=== PATIENT | female | born 1950 | race Caucasian/White ===

== ENCOUNTER 2020-06-24 13:19 | Outpatient (CLI) | payer OTHER, SELFPAY ==
[2020-06-24 13:39] LABS: Basophils Absolute Auto 0.1 K/mm3 (0.0-0.1); Basophils Percent Auto 0.9 % (0.2-1.2); Eosinophils Absolute Auto 0.1 K/mm3 (0-0.3); Eosinophils Percent Auto 1.4 % (0-4.4); Hematocrit 39.7 % (37.0-47.0); Hemoglobin 12.9 g/dL (12.0-15.0); Immature Granulocyte Absolute 0.02 K/mm3 (0.00-0.031); Immature Granulocyte Percent A 0.3 % (0-0.5); Lymphocytes Absolute Auto 2.24 K/mm3 (0.9-3.2); Lymphocytes Percent Auto 38.7 % (18.3-44.2); Mean Corpuscular HGB Conc 32.5 g/dl (32-36); Mean Corpuscular Hemoglobin 32.2 pg (26-34); Mean Platelet Volume 9.5 fl (7.4-10.4); Monocytes Absolute Auto 0.7 K/mm3 (0.1-0.6); Monocytes Percent Auto 11.4 % (2.6-8.5); Neutrophils Absolute Auto 2.7 K/mm3 (1.3-6.7); Neutrophils Percent Auto 47.3 % (45.5-73.1); Platelet Count Result 285 k/mm3 (150-375); Red Blood Count 4.01 M/mm3 (4.2-5.4); Red Cell Distribution Width 13.5 % (11.5-14.5); White Blood Count 5.8 K/mm3 (4.5-10.0)
[2020-06-24 13:51] LABS: Alanine Aminotransferase 20 U/L (4-35); Albumin Level 3.9 g/dL (3.5-5.1); Alkaline Phosphatase 61 U/L (38-126); Anion Gap 6 mmol/L (8-16); Aspartate Amino Transferase 30 U/L (14-36); Bilirubin,Total 0.5 mg/dL (0.2-1.3); Blood Urea Nitrogen 24 mg/dL (7-17); Calcium 8.6 mg/dL (8.4-10.2); Carbon Dioxide 29 mmol/L (22-30); Chloride 102 mmol/L (98-107); Cholesterol 154 mg/dL (0-200); Estimated Glomerular Filt Rate 55; Glucose 119 mg/dL (65-105); HDL Direct 49 mg/dL; Potassium 3.7 mmol/L (3.4-5.0); Sodium 137 mmol/L (137-145); Triglycerides 119 mg/dL (<150); Uric Acid 4.8 mg/dL (2.5-7.5)
[2020-06-24 14:02] LABS: LDL Cholesterol Direct 73 mg/dL
[2020-06-24 14:21] LABS: Thyroid Stimulating Hormone 0.102 uIU/mL (0.465-4.680)
[2020-06-24 14:25] LABS: Free T4 Free Thyroxine 1.31 ng/mL (0.78-2.19)
[2020-06-24 14:57] LABS: Folic Acid > 20.0 ng/mL (2.76->20); Vitamin B12 > 1000.0 pg/mL (239-931)
== END 2020-06-24 13:20 | disposition home or self-care (01) ==
PROVIDERS: PCP Internal Medicine; Visit Provider Internal Medicine
DX: R53.83 Other fatigue (principal); I10 Essential (primary) hypertension; E03.9 Hypothyroidism, unspecified; E78.5 Hyperlipidemia, unspecified; M10.9 Gout, unspecified
CPT/HCPCS: 36415; 80053; 80061; 82607; 82746; 84439; 84443; 84550; 85025

== ENCOUNTER 2020-07-05 01:39 | Outpatient (CLI) | payer OTHER, SELFPAY ==
[2020-07-05 19:20] LABS: SARS-CoV-2 RNA PCR Negative
== END 2020-07-05 01:40 | disposition home or self-care (01) ==
LOC: ANHCOVIDDT 01:39
PROVIDERS: PCP Internal Medicine; Visit Provider Internal Medicine Gastroenterology
DX: Z01.812 Encounter for preprocedural laboratory examination (principal); Z20.828 Contact with and (suspected) exposure to other viral communicable diseases
CPT/HCPCS: 87635; C9803; U0003

== ENCOUNTER 2020-07-07 01:26 | Day surgery (SDC) | payer OTHER, SELFPAY ==
[2020-06-29 10:32] VITALS: BMI 39.2
[2020-07-07 09:57] VITALS: BP 143/74; PULSE 73; RESP 16; TEMP 36.6; O2SAT 73; BMI 40.9
--- NOTE | 2020-07-07 10:02 | WPDGICN ---
Assessment and Plan Assessment and plan (1) Encounter for screening colonoscopy: Code(s): Z12.11 - Encounter for screening for malignant neoplasm of colon Status: Acute Assessment and Plan: Patient presents for screening colonoscopy today. Last colonoscopy was 10 or 11 years prior to this. Further recommendations will be given after endoscopy. (2) History of gastric bypass: Code(s): Z98.84 - Bariatric surgery status Status: Acute (3) GERD (gastroesophageal reflux disease): Code(s): K21.9 - Gastro-esophageal reflux disease without esophagitis Status: Acute GI Consult Note Consult date/time: 07/07/20 10:02 HPI: Angelita Byrd is a 70 year old female Presents for screening colonoscopy. Patient followed by Dr. Jorden Overton. Patient states that her current weight appetite bowel movements are normal. She denies abdominal pain. She has had no blood in her stools. Her past medical history is significant for gastric bypass surgery. She occasionally has acid reflux and epigastric discomfort. She gets full quickly. Review of Systems Review of Systems: All systems reviewed & are unremarkable except as noted in HPI and below PMFSH Family History Family History Sibling Patient's sister is in good health Patient's brother is in good health Social History Social History Smoking status: Never smoker Second hand tobacco smoke exposure: No Alcohol intake: current Substance use: unknown Spiritual care concerns: No Meds Home Medications and Allergies Home Medications Medication Instructions Recorded Confirmed Type codeine-guaifenesin 10 ml PO Q4-6H PRN #120 ml 10/30/19 06/29/20 Rx levofloxacin [Levaquin] 750 mg PO DAILY 5 Days #5 tablet 10/30/19 06/29/20 Rx montelukast [Singulair] 10 mg PO DAILY 10/30/19 06/29/20 History prednisone 40 mg PO DAILY 5 Days #10 tablet 10/30/19 06/29/20 Rx hydrochlorothiazide 12.5 mg tablet 12.5 mg PO DAILY #90 tablet 12/01/19 06/29/20 Rx citalopram 20 mg tablet 20 mg PO DAILY #90 tablet 12/03/19 06/29/20 Rx simvastatin 20 mg tablet 20 mg PO HS #90 tablet 12/03/19 06/29/20 Rx allopurinol 100 mg tablet 100 mg PO DAILY #90 tablet 03/11/20 06/29/20 Rx amlodipine 10 mg tablet 10 mg PO DAILY #90 tablet 03/11/20 06/29/20 Rx bupropion HCl 150 mg tablet,12 hr 150 mg PO BID #180 tablet 03/11/20 06/29/20 Rx sustained-release pantoprazole 40 mg tablet,delayed 40 mg PO QAM #90 tablet 03/11/20 06/29/20 Rx release Adults Multivitamin 1 tablet PO DAILY 06/29/20 06/29/20 History Iron DAILY 06/29/20 History calcium carbonate [Calcium 600] 600 mg PO DAILY 06/29/20 06/29/20 History fluticasone propionate [Flonase 50 mcg INTRANASAL DAILY 06/29/20 06/29/20 History Allergy Relief] turmeric 400 mg PO DAILY 06/29/20 06/29/20 History vitamin B complex [B tablet 06/29/20 History Complex-Vitamin B12] levothyroxine 112 mcg tablet 112 mcg PO DAILY #90 tablet 07/04/20 Rx Allergies Allergy/AdvReac Type Severity Reaction Status Date / Time No Known Allergies Allergy Verified 07/07/20 09:55 Vital Signs Vital Signs - 24 hr 07/07/20 09:57 Temperature 98 F Pulse Rate 73 Respiratory Rate 16 Blood Pressure 143/74 H Pulse Oximetry 73 L Exam Narrative: Exam Narrative: Physical exam reveals patient to be alert. Vital signs stable. HEENT exam unremarkable. She is anicteric. Lungs are clear to auscultation and percussion. Heart is without murmur or extra sounds. Abdominal exam bowel sounds are present soft nontender with no organomegaly. Digital external rectal exam normal.
--- NOTE | 2020-07-07 10:11 | WPDANESEPPF ---
Anes - Initial Pre Proc Eval Procedure: Operation Date: 07/07/20 10:30 Proposed Procedures p Screening Colonoscopy - Red Lan MD Date/Time: 07/07/20 10:11 Surgeon: Red Lan MD Pre Op Diagnosis: Neoplasm Screening Patient Data Age: 70 Gender: F Height: 1.7 m Weight: 118.6 kg Last Vital Signs Temp 36.6 C 07/07/20 09:57 Pulse 73 07/07/20 09:57 Resp 16 07/07/20 09:57 BP 143/74 H 07/07/20 09:57 Pulse Ox 73 L 07/07/20 09:57 Allergies Allergy/AdvReac Type Severity Reaction Status Date / Time No Known Allergies Allergy Verified 07/07/20 09:55 Home Medications Medication Instructions Recorded Confirmed Type codeine-guaifenesin 10 ml PO Q4-6H PRN #120 ml 10/30/19 06/29/20 Rx levofloxacin [Levaquin] 750 mg PO DAILY 5 Days #5 tablet 10/30/19 06/29/20 Rx montelukast [Singulair] 10 mg PO DAILY 10/30/19 06/29/20 History prednisone 40 mg PO DAILY 5 Days #10 tablet 10/30/19 06/29/20 Rx hydrochlorothiazide 12.5 mg tablet 12.5 mg PO DAILY #90 tablet 12/01/19 06/29/20 Rx citalopram 20 mg tablet 20 mg PO DAILY #90 tablet 12/03/19 06/29/20 Rx simvastatin 20 mg tablet 20 mg PO HS #90 tablet 12/03/19 06/29/20 Rx allopurinol 100 mg tablet 100 mg PO DAILY #90 tablet 03/11/20 06/29/20 Rx amlodipine 10 mg tablet 10 mg PO DAILY #90 tablet 03/11/20 06/29/20 Rx bupropion HCl 150 mg tablet,12 hr 150 mg PO BID #180 tablet 03/11/20 06/29/20 Rx sustained-release pantoprazole 40 mg tablet,delayed 40 mg PO QAM #90 tablet 03/11/20 06/29/20 Rx release Adults Multivitamin 1 tablet PO DAILY 06/29/20 06/29/20 History Iron DAILY 06/29/20 History calcium carbonate [Calcium 600] 600 mg PO DAILY 06/29/20 06/29/20 History fluticasone propionate [Flonase 50 mcg INTRANASAL DAILY 06/29/20 06/29/20 History Allergy Relief] turmeric 400 mg PO DAILY 06/29/20 06/29/20 History vitamin B complex [B tablet 06/29/20 History Complex-Vitamin B12] levothyroxine 112 mcg tablet 112 mcg PO DAILY #90 tablet 07/04/20 Rx Patient hx anesthesia problems: none Family hx anesthesia problems: none PMFSH Past Medical History Medical History (Updated 07/07/20 @ 10:18 by Rafy Glass MD) Depression GERD (gastroesophageal reflux disease) Gout Hypercholesterolemia Hypertension Hypothyroid Family History Family History Sibling Patient's sister is in good health Patient's brother is in good health Social History Social History Smoking status: Never smoker Second hand tobacco smoke exposure: No Alcohol intake: current Substance use: unknown Spiritual care concerns: No Anes - Eval Final PreProcedure Day of Procedure 07/07/20 10:11 Patient weight: obese Heart: regular rate and rhythm Lungs: clear to auscultation and normal air movement Airway: Mallampati scale class II Neurological: alert and oriented Last oral intake: >/= 8 hours ASA classification: III Emergent: no Anesthetic plan: proceed Anesthesia type and monitoring: general GIVS Informed Consent: The patient's anesthetic plan and its attendant risks and benefits were discussed with the patient/family/POA. Questions were solicited and answers provided to the satisfaction of the patient/family/POA.
[2020-07-07] MEDS: LACTATED RINGERS 1,000 ML 150 ML IV CONT (10:26)
[2020-07-07 11:01] VITALS: BP 124/74; PULSE 68; RESP 13; O2SAT 97
[2020-07-07 11:13] VITALS: BP 137/81; PULSE 65; RESP 22; O2SAT 97
[2020-07-07 11:23] VITALS: BP 146/76; PULSE 65; RESP 22; O2SAT 100
== END 2020-07-07 11:52 | disposition home or self-care (01) ==
PROVIDERS: PCP Internal Medicine; Visit Provider Internal Medicine Gastroenterology
PROC: 0DJD8ZZ Inspection of Lower Intestinal Tract, Via Natural or Artificial Opening Endoscopic (ICD-10-PCS; CPT 45378; principal; 2020-07-07 10:30)
DX: Z12.11 Encounter for screening for malignant neoplasm of colon (principal); K64.8 Other hemorrhoids; K21.9 Gastro-esophageal reflux disease without esophagitis; Z98.84 Bariatric surgery status; I10 Essential (primary) hypertension; E78.00 Pure hypercholesterolemia, unspecified; E03.9 Hypothyroidism, unspecified; M10.9 Gout, unspecified; F32.9 Major depressive disorder, single episode, unspecified; E66.01 Morbid (severe) obesity due to excess calories; Z68.41 Body mass index [BMI] 40.0-44.9, adult
CPT/HCPCS: G0121; J2704; J7120

== ENCOUNTER 2020-07-18 14:47 | Outpatient (CLI) | payer OTHER, SELFPAY ==
--- NOTE | ~2020-07-18 | MM_ITS ---
EXAMINATION: MM screening doc BI w uriel HISTORY: Screening mammogram TECHNIQUE: Craniocaudal and mediolateral oblique 3-D tomosynthesis images were obtained and synthetic 2-D images were generated. CAD analysis was submitted and interpreted. COMPARISON: 06/01/2019, 04/23/2018 bilateral digital screening mammogram examinations BREAST PARENCHYMAL COMPOSITION: The breasts are almost entirely fatty. FINDINGS: There is no evidence of suspicious mass, calcification, or architectural distortion to sugg est malignancy in either breast. There has been no suspicious interval change. IMPRESSION: 1. No mammographic evidence of malignancy. 2. Recommend routine screening mammography in one year. BI-RADS Category 1: Negative Reviewed, dictated and finalized at location A.
== END 2020-07-18 14:48 | disposition home or self-care (01) ==
LOC: ANHIMG 14:48
PROVIDERS: PCP Internal Medicine; Visit Provider Internal Medicine
DX: Z12.31 Encounter for screening mammogram for malignant neoplasm of breast (principal)
CPT/HCPCS: 77063; 77067

== ENCOUNTER 2020-08-03 08:24 | Outpatient (CLI) | payer OTHER, SELFPAY ==
--- NOTE | 2020-08-23 22:53 | WPDHOMESLEEP ---
Sleep Study - Home Date of Study: 08/03/20 Ordering Provider: Da Overton DO Interpreting Physician: Acacia Dasilva MD Home Sleep Study Type: Apnea Link Air Height: 1.68 m Weight: 117.934 kg Body Mass Index: 41.9 [place]: 13 Reason for Sleep Study Snoring, fatigue no matter how much sleep she gets. 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 Occasionally it is loud enough that others complain about it. She occasionally awakens at night with belching heartburn or coughing. She occasionally has trouble sleeping if she has a cold. She does not gasp for breath at night. She rarely has breathing problems at night reported to her by others. She frequently sweats excessively at night but never notices her heart pounding or beating irregularly at night. She occasionally falls asleep during the day really involuntarily and rarely while driving. She does not fall asleep during physical effort. She does not have loss of muscle tone was straw motion. She rarely has daytime difficulties due to excessive sleepiness. She never feels paralyzed on waking or falling asleep. She rarely has vivid dreamlike scenes upon awakening or falling asleep. She has never freight to go to sleep. She rarely has nightmares and rarely remembers her dreams. She frequently has racing thoughts, frequently feels sad as well as depressed an anxious, frequently has muscular tension. she occasionally notices parts of her body jerking. She rarely kicks at night. She frequently has crawling and aching feelings in her legs and occasionally has leg pain at night. She does not have morning jaw pain. She frequently grinds her teeth during sleep. she frequently is bothered by pain during the day occasionally is awakened by pain at night. She frequently wakes up feeling stiff in the morning with sore achy muscles and pain in her neck and spine. She has fatigue memory problems concentration difficulties depression and bowel disturbances. To Her work Schedule. It takes her 1/2 hour to fall asleep and she typically wakes 2 or 3 times at night to urinate for about a half an hour. 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 Smoking status: Never smoker Second hand tobacco smoke exposure: No Alcohol intake: current Drinks per week: 1 Substance use: unknown Spiritual care concerns: No Medications Home Medications Medication Instructions Recorded Confirmed Type codeine-guaifenesin 10 ml PO Q4-6H PRN #120 ml 10/30/19 06/29/20 Rx levofloxacin [Levaquin] 750 mg PO DAILY 5 Days #5 tablet 10/30/19 06/29/20 Rx montelukast [Singulair] 10 mg PO DAILY 10/30/19 06/29/20 History prednisone 40 mg PO DAILY 5 Days #10 tablet 10/30/19 06/29/20 Rx allopurinol 100 mg tablet 100 mg PO DAILY #90 tablet 03/11/20 06/29/20 Rx amlodipine 10 mg tablet 10 mg PO DAILY #90 tablet 03/11/20 06/29/20 Rx bupropion HCl 150 mg tablet,12 hr 150 mg PO BID #180 tablet 03/11/20 06/29/20 Rx sustained-release pantoprazole 40 mg tablet,delayed 40 mg PO QAM #90 tablet 03/11/20 06/29/20 Rx release Adults Multivitamin 1 tablet PO DAILY 06/29/20 06/29/20 History Iron DAILY 06/29/20 History calcium carbonate [Calcium 600] 600 mg PO DAILY 06/29/20 06/29/20 History fluticasone propionate [Flonase 50 mcg INTRANASAL DAILY 06/29/20 06/29/20 History Allergy Relief] turmeric 400 mg PO DAILY 06/29/20
[2020-08-23 23:12] VITALS: BMI 41.9
== END 2020-08-03 08:25 | disposition home or self-care (01) ==
LOC: ANHCSM 08:27
PROVIDERS: PCP Internal Medicine; Visit Provider Internal Medicine
DX: G47.33 Obstructive sleep apnea (adult) (pediatric) (principal)
CPT/HCPCS: 95806

== ENCOUNTER 2020-09-18 00:32 | Outpatient (CLI) | payer OTHER, SELFPAY ==
[2020-09-18 16:41] LABS: SARS-CoV-2 RNA PCR Negative
== END 2020-09-18 00:33 | disposition home or self-care (01) ==
LOC: ANHCOVIDDT 00:33
PROVIDERS: PCP Internal Medicine; Visit Provider Internal Medicine Critical Care Medicine
DX: Z20.828 Contact with and (suspected) exposure to other viral communicable diseases (principal)
CPT/HCPCS: 87635; C9803; U0003

== ENCOUNTER 2020-09-20 08:47 | Outpatient (CLI) | payer OTHER, SELFPAY ==
--- NOTE | 2020-11-01 10:31 | WPDSLEEPSTUD ---
Sleep Study Date of Study: 09/20/20 Ordering Provider: Da Overton DO Interpreting Physician: Acacia Dasilva MD Sleep Study Type: CPAP Titration Height: 1.65 m Weight: 110.223 kg Body Mass Index: 40.4 [place]: 13 Reason for Sleep Study Home sleep test on August 03, 2020 with mild obstructive sleep apnea syndrome with an AHI of 14.2, desaturation 81% mainly obstructive events with 65% of her apneas scored as obstructive, a third of the events were central apneas, and 5 minutes spent below 88% saturation with moderate snoring. Sleep History Angelita Byrd is a 70 yo female with a history of snoring on occasion, reported to her by her . Occasionally it is loud enough that others complain about it. She occasionally awakens at night with belching heartburn or coughing. She occasionally has trouble sleeping if she has a cold. She does not gasp for breath at night. She rarely has breathing problems at night reported to her by others. She frequently sweats excessively at night but never notices her heart pounding or beating irregularly at night. She occasionally falls asleep during the day really involuntarily and rarely while driving. She does not fall asleep during physical effort. She does not have loss of muscle tone was straw motion. She rarely has daytime difficulties due to excessive sleepiness. She never feels paralyzed on waking or falling asleep. She rarely has vivid dreamlike scenes upon awakening or falling asleep. She has never freight to go to sleep. She rarely has nightmares and rarely remembers her dreams. She frequently has racing thoughts, frequently feels sad as well as depressed an anxious, frequently has muscular tension. she occasionally notices parts of her body jerking. She rarely kicks at night. She frequently has crawling and aching feelings in her legs and occasionally has leg pain at night. She does not have morning jaw pain. She frequently grinds her teeth during sleep. she frequently is bothered by pain during the day occasionally is awakened by pain at night. She frequently wakes up feeling stiff in the morning with sore achy muscles and pain in her neck and spine. She has fatigue, memory problems, concentration difficulties, depression, and bowel disturbances. It takes her 1/2 hour to fall asleep and she typically wakes 2 or 3 times at night, usually to urinate. SHe remains awake for about a half an hour. 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 Smoking status: Never smoker Second hand tobacco smoke exposure: No Alcohol intake: current Drinks per week: 1 Substance use: unknown Spiritual care concerns: No Medications Home Medications Medication Instructions Recorded Confirmed Type codeine-guaifenesin 10 ml PO Q4-6H PRN #120 ml 10/30/19 06/29/20 Rx levofloxacin [Levaquin] 750 mg PO DAILY 5 Days #5 tablet 10/30/19 06/29/20 Rx montelukast [Singulair] 10 mg PO DAILY 10/30/19 06/29/20 History prednisone 40 mg PO DAILY 5 Days #10 tablet 10/30/19 06/29/20 Rx Adults Multivitamin 1 tablet PO DAILY 06/29/20 06/29/20 History Iron DAILY 06/29/20 History calcium carbonate [Calcium 600] 600 mg PO DAILY 06/29/20 06/29/20 History fluticasone propionate [Flonase 50 mcg INTRANASAL DAILY 06/29/20 06/29/20 History Allergy Relief] turmeric 400 mg PO DAILY 06/29/20 06/29/20 History vitamin B complex [B tablet 06/29/20 History
[2020-11-01 12:18] VITALS: BMI 40.4
== END 2020-09-20 08:48 | disposition home or self-care (01) ==
LOC: ANHCSM 08:48
PROVIDERS: PCP Internal Medicine; Visit Provider Internal Medicine
DX: G47.33 Obstructive sleep apnea (adult) (pediatric) (principal); Z68.41 Body mass index [BMI] 40.0-44.9, adult
CPT/HCPCS: 95811

== ENCOUNTER 2020-12-13 05:02 | Emergency (ER) | payer OTHER, SELFPAY ==
--- NOTE | ~2020-12-13 | XR_ITS ---
EXAMINATION: XR knee LT 3V DATE: 12/13/2020 05:43 INDICATION: Left knee pain TECHNIQUE: Three views of the left knee were obtained. COMPARISON: None. FINDINGS: Alignment is normal. No fracture or osteochondral lesion. There is mild tricompartmental os teoarthritis characterized by tiny marginal osteophytes. No joint effusion/synovitis. Calcified athe rosclerosis is noted. IMPRESSION: 1. No acute osseous abnormality. Reviewed, dictated and finalized at location A. [employer]
--- NOTE | ~2020-12-13 | XR_ITS ---
EXAMINATION: XR foot LT min 3V DATE: 12/13/2020 05:43 INDICATION: Left foot pain TECHNIQUE: Dorsoplantar, lateral, and 2 oblique views of the left foot were obtained. COMPARISON: None. FINDINGS: There is no fracture, dislocation, or subluxation. Moderate osteoarthritis is noted at the first metatarsophalangeal joint and in multiple interphalangeal joints. A plantar calcaneal enthesoph ytes present. The soft tissues are unremarkable. IMPRESSION: 1. No acute osseous abnormality. Reviewed, dictated and finalized at location A. . CREATIVE DIRECTOR
--- NOTE | 2020-12-13 05:06 | ED.FALL ---
HPI - Fall General Chief Complaint: Fall Stated Complaint: other Time Seen by Provider: 12/13/20 05:03 History of Present Illness HPI Narrative: She was working upstairs on the floors when she slipped and fell. She primarily has pain in her left foot and knee. She also reports pain in the hips, and entire back, neck, and head. She did not strike her head in the fall. She was was able to get herself up after the fall and ambulate without difficulty. Related Data Home Medications Medication Instructions Recorded Confirmed montelukast [Singulair] 10 mg PO DAILY 10/30/19 06/29/20 Adults Multivitamin 1 tablet PO DAILY 06/29/20 06/29/20 Iron DAILY 06/29/20 calcium carbonate [Calcium 600] 600 mg PO DAILY 06/29/20 06/29/20 fluticasone propionate [Flonase 50 mcg INTRANASAL DAILY 06/29/20 06/29/20 Allergy Relief] turmeric 400 mg PO DAILY 06/29/20 06/29/20 vitamin B complex [B tablet 06/29/20 Complex-Vitamin B12] Allergies Allergy/AdvReac Type Severity Reaction Status Date / Time No Known Allergies Allergy Verified 12/13/20 05:35 Review of Systems Review of Systems: All systems reviewed & are unremarkable except as noted in HPI and below Constitutional: Constitutional: Denies fever(s) and Denies weakness Eyes: Eyes: Reports no additional eye complaints Cardiovascular: Cardiovascular: Denies chest pain Respiratory: Respiratory: Denies dyspnea Gastrointestinal: Gastrointestinal: Denies nausea Genitourinary: Genitourinary: Reports no additional female genitourinary complaints Musculoskeletal: Musculoskeletal: Reports back pain Neurologic: Denies confusion, Denies dizziness, Reports headache(s) and Denies weakness Hematologic/Lymphatic: Hematologic/Lymphatic: Denies easy bleeding and Denies easy bruising PMF Past Medical History Medical History Depression GERD (gastroesophageal reflux disease) Gout History of sinus problem Hypercholesterolemia Hypertension Hypothyroid Kidney stones Obstructive sleep apnea (~07/2020) Family History Family History Sibling Patient's sister is in good health Patient's brother is in good health Social History Social History Social History: , 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 Smoking status: Never smoker Second hand tobacco smoke exposure: No Alcohol intake: current Drinks per week: 1 Substance use: unknown Spiritual care concerns: No Exam Const: General: no acute distress and alert Nutritional Appearance: obese Orientation/consciousness: patient oriented x3 HENMT: Head: normal to inspection, no contusions, no hematomas and no lacerations Eyes: Pupils: pupils not ERRL EOM: EOM not intact bilaterally Neck: Neck: not normal to visual inspection Resp: Effort & Inspection: normal respiratory effort Cardio: Rate: regular rate GI: GI Palp: Yes Soft to palpation and No Tenderness to palpation present (GI) Back/Spine/Pelvis: Other: Reporting diffuse pain and tenderness throughout the back. She does not seem to have any significant focal tenderness Skin: Other: No wounds, bruising, or obvious signs of injury Neuro: General: patient oriented x3, moves all extremities, no focal motor deficits and CN's II-XI intact bilaterally Speech: normal speech Gait exam (Neuro): Normal gait present Extrem: Other: Tenderness over superior portion or left patella and mid foot. Full ROM. Course Vital Signs Vital signs: Vital Signs Temperature 36.8 C 12/13/20 05:15 Pulse Rate 81 12/13/20 05:15 Respiratory Rate 12/13/20 05:15 Blood Pressure 182/88 H 12/13/20 05:15 Pulse Oximetry 99 12/13/20 05:15 Temperature 36.8 C 12/13/20 05:15 Pulse Rate 81 12/13/20 05:15 Respiratory Rate 20 12/13/20 05:15 Blood Pressure 182/88 H
[2020-12-13 05:15] VITALS: BP 182/88; PULSE 81; RESP 20; TEMP 36.8; O2SAT 99
--- NOTE | 2020-12-13 06:30 | PC.NURSE ---
Pt. requesting work note upon discharge. ERP notified of Pt. request. ERP notified RN Pt. is cleared to return to work tonight. Pt. states Wow. Doesn't he know what I do? I work on [employer]. He is an ass.
== END 2020-12-13 06:30 | disposition home or self-care (01) ==
PROVIDERS: Emergency Provider Emergency Medicine; PCP Internal Medicine
DX: S93.602A Unspecified sprain of left foot, initial encounter (principal); M25.562 Pain in left knee; K21.9 Gastro-esophageal reflux disease without esophagitis; M10.9 Gout, unspecified; E78.00 Pure hypercholesterolemia, unspecified; I10 Essential (primary) hypertension; E03.9 Hypothyroidism, unspecified; Z87.442 Personal history of urinary calculi; G47.33 Obstructive sleep apnea (adult) (pediatric); W01.0XXA Fall on same level from slipping, tripping and stumbling without subsequent striking against object, initial encounter
CPT/HCPCS: 73562; 73630; 99284

== ENCOUNTER 2021-05-03 09:00 | Outpatient (RCR) | payer OTHER, SELFPAY ==
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
--- NOTE | 2021-04-06 08:57 | PCPTNOTE ---
Patient did not show up for scheduled appointment this date. Left voicemail about missed appointment and reminded Pt of upcoming appointment on 04/10/21 @ 08:30. This is Pt's first N/S.
--- NOTE | 2021-04-19 09:59 | PCPTNOTE ---
dry needling intervention added to pt plan of care; discussed pt with Riana Morillo CAR BODY DESIGNER and Christa Holder PT about dry needling treatment for pt.
--- NOTE | 2021-04-24 09:25 | PCPTNOTE ---
Patient over slept for this morning appointment. Asked if she could be rescheduled at another time today and was able to place her in an open appointment slot of another patient. Notified patient the potential of being FDN might not be assessable at the last appointment this date.
--- NOTE | 2021-05-03 09:42 | PTOPEVAL ---
PHYSICAL THERAPY DISCHARGE 05-03-21 Refer to the clinical summary below, for her status today, compared to the initial evaluation. The goals were achieved, except single leg standing time. Thank you for referring Angelita Byrd to [facility].? Please review, sign, date and return this Discharge report CINDY. I agree with and certify that the following plan of care is medically necessary. Referring Physician Date Attending Provider: Munir Mack MD Document 05/03/21 09:10 SHAWN (Rec: 05/03/21 09:41 SHAWN [id number]) Assessment Status Discharge Subjective Information Angelita reports: had dry Query Text:As Reported By Patient/ needling once, it helped; Family have to think hard to do the isolation exercises on foot/ ankle; going to get a new arch support for my shoes to support ankle/foot; Pain Assessment Timing of Pain Assessment Timing of Pain Assessment Assessment Pain Scale Pain Scale Used Numeric (1 - 10) Self Report Pain Assessment Left Ankle(s) Reported Pain Level 2 Pain Description Burning Pain Frequency Chronic Other Pain Description anterior and lateral ankle; Lowest Pain Intensity 2 Greatest Pain Intensity 4 Pain Aggravating Factors Walking,Weight Bearing/ Standing Other Pain Aggravating Factors reports working 4 hrs- note incr pain;walk w/ sharp turns; push beds Pain Behaviors Grimacing,Guarding Additional Pain Comments push med carts; working 12 hour shifts Pain Score Pain Score 2: Self Report Interventions Used Interventions Used By Clinicians Education,Exercise Pain Relief Interventions Used By Ice,Inactivity/Rest,Medication Patient Other Alleviating Interventions tylenol about every 6 hr; Lower Extremity Range of Motion General Lower Extremity Range of Motion Gross Lower Extremity Range of Motion L ankle active: DF 5', PF 45' Comments ; inversion 30';eversion 15'; with eversion reports little pain and pulls Lower Extremity Muscle Strength Testing General Lower Extremity Strength Gross Lower Extremity Strength functional strength L ankle: - single leg stand 6 sec - standing B PF without UE support 20 reps- reports both calves pull/burn -standing B small squat x 25 reps - sitting with heel on ground
== END 2021-05-10 16:51 | disposition home or self-care (01) ==
LOC: ANHPT 09:00
PROVIDERS: PCP Internal Medicine; Visit Provider Orthopaedic Surgery
DX: S93.402D Sprain of unspecified ligament of left ankle, subsequent encounter (principal)
CPT/HCPCS: 97022; 97110; 97140; 97161

== ENCOUNTER 2021-06-26 13:44 | Outpatient (CLI) | payer OTHER, SELFPAY ==
[2021-06-26 14:07] LABS: Basophils Absolute Auto 0.1 K/mm3 (0.0-0.1); Basophils Percent Auto 0.8 % (0.2-1.2); Eosinophils Absolute Auto 0.1 K/mm3 (0-0.3); Hemoglobin 13.4 g/dL (12.0-15.0); Immature Granulocyte Absolute 0.02 K/mm3 (0.00-0.031); Immature Granulocyte Percent A 0.3 % (0-0.5); Lymphocytes Absolute Auto 2.03 K/mm3 (0.9-3.2); Lymphocytes Percent Auto 30.8 % (18.3-44.2); Mean Corpuscular HGB Conc 31.9 g/dl (32-36); Mean Corpuscular Hemoglobin 32.6 pg (26-34); Mean Corpuscular Volume 102.2 fl (80-100); Mean Platelet Volume 9.6 fl (7.4-10.4); Monocytes Absolute Auto 0.6 K/mm3 (0.1-0.6); Monocytes Percent Auto 9.3 % (2.6-8.5); Neutrophils Absolute Auto 3.8 K/mm3 (1.3-6.7); Neutrophils Percent Auto 56.8 % (45.5-73.1); Platelet Count Result 259 k/mm3 (150-375); Red Blood Count 4.11 M/mm3 (4.2-5.4); Red Cell Distribution Width 13.4 % (11.5-14.5); White Blood Count 6.6 K/mm3 (4.5-10.0)
[2021-06-26 14:37] LABS: Alanine Aminotransferase 20 U/L (4-35); Albumin Level 4.3 g/dL (3.5-5.1); Alkaline Phosphatase 68 U/L (38-126); Anion Gap 9 mmol/L (8-16); Aspartate Amino Transferase 30 U/L (14-36); Bilirubin,Total 0.4 mg/dL (0.2-1.3); Blood Urea Nitrogen 24 mg/dL (7-17); Calcium 9.5 mg/dL (8.4-10.2); Carbon Dioxide 30 mmol/L (22-30); Chloride 100 mmol/L (98-107); Cholesterol 147 mg/dL (0-200); Estimated Glomerular Filt Rate 49; Glucose 123 mg/dL (65-110); HDL Direct 54 mg/dL; Potassium 3.8 mmol/L (3.4-5.0); Sodium 139 mmol/L (137-145); Triglycerides 113 mg/dL (<150); Uric Acid 4.9 mg/dL (2.5-7.5)
[2021-06-26 14:48] LABS: Hemoglobin A1C 5.7 % (<5.7); LDL Cholesterol Direct 59 mg/dL
[2021-06-26 15:58] LABS: Folic Acid > 20.0 ng/mL (2.76->20)
[2021-06-26 16:21] LABS: Free T4 Free Thyroxine 1.04 ng/mL (0.78-2.19)
== END 2021-06-26 13:45 | disposition home or self-care (01) ==
LOC: ANHLAB 13:48
PROVIDERS: PCP Internal Medicine; Visit Provider Internal Medicine
DX: E03.9 Hypothyroidism, unspecified (principal); R73.9 Hyperglycemia, unspecified; E78.00 Pure hypercholesterolemia, unspecified; M10.9 Gout, unspecified; R53.83 Other fatigue
CPT/HCPCS: 36415; 80053; 80061; 82607; 82746; 83036; 84439; 84443; 84550; 85025

== ENCOUNTER 2021-08-02 07:56 | Outpatient (CLI) | payer OTHER, SELFPAY ==
--- NOTE | ~2021-08-02 | MM_ITS ---
EXAMINATION: MM screening [facility] BI w uriel HISTORY: Screening mammogram TECHNIQUE: Craniocaudal and mediolateral oblique 3-D tomosynthesis images were obtained and synthetic 2-D images were generated. CAD analysis was submitted and interpreted. COMPARISON: 07/18/2020, 06/01/2019 BREAST PARENCHYMAL COMPOSITION: The breasts are almost entirely fatty. FINDINGS: There is no evidence of suspicious mass, calcification, or architectural distortion to sugg est malignancy in either breast. There has been no suspicious interval change. IMPRESSION: 1. No mammographic evidence of malignancy. 2. Recommend routine screening mammography in one year. BI-RADS Category 1: Negative Reviewed, dictated and finalized at location A.
== END 2021-08-02 07:57 | disposition home or self-care (01) ==
PROVIDERS: PCP Internal Medicine; Visit Provider Obstetrics & Gynecology
DX: Z12.31 Encounter for screening mammogram for malignant neoplasm of breast (principal)
CPT/HCPCS: 77063; 77067

== ENCOUNTER 2021-09-07 12:50 | Outpatient (CLI) | payer OTHER, SELFPAY ==
--- NOTE | ~2021-09-07 | XR_ITS ---
XR cervical spine 4-5V 09/07/2021 13:29 Indication: Neck pain Procedure: 4 view cervical spine Comparison: No prior studies for comparison. Findings: Vertebral body and disc heights are preserved. No prevertebral soft tissue swelling. No fra cture, subluxation or dislocation. Odontoid process within normal limits. Lung apices are unremarkabl e. Impression: 1: No acute abnormality of the cervical spine. Reviewed, dictated and finalized at location A. ING ROLL HAND Impression: 1: No acute abnormality of the cervical spine.
== END 2021-09-07 12:51 | disposition home or self-care (01) ==
LOC: ANHIMG 12:57
PROVIDERS: PCP Internal Medicine
DX: S16.1XXA Strain of muscle, fascia and tendon at neck level, initial encounter (principal)
CPT/HCPCS: 72050

== ENCOUNTER 2021-09-14 09:44 | Emergency (ER) | payer OTHER, SELFPAY ==
--- NOTE | ~2021-09-14 | XR_ITS ---
XR cervical spine 4-5V DATE: 09/14/2021 10:31 INDICATION: Fall today. Neck pain. TECHNIQUE: AP, open-mouth, lateral, swimmer's and bilateral oblique views COMPARISON: 09/07/2021 cervical spine FINDINGS: Normal cervical curvature on lateral view. C1 and C2 are normally aligned and the odontoid process is intact. No fracture or dislocation or locked facet or prevertebral soft tissue swelling. C ervical interspaces are well preserved. No significant bony encroachment upon the neural foramina. IMPRESSION: No significant abnormality Reviewed, dictated and finalized at location A. CUTTER DIAMOND IMPRESSION: No significant abnormality
--- NOTE | ~2021-09-14 | XR_ITS ---
EXAMINATION: XR knee LT min 4V DATE: 09/14/2021 10:31 INDICATION: Left knee pain. Fall. TECHNIQUE: 4 views of left knee were obtained. COMPARISON: Left knee radiographs 12/13/2020 FINDINGS: Bone alignment is normal. No fracture. There is mild tricompartmental osteoarthritis. No kn ee joint effusion. IMPRESSION: 1. Mild left knee osteoarthritis. Reviewed, dictated and finalized at location A. ING SUPERVISOR
--- NOTE | ~2021-09-14 | XR_ITS ---
EXAMINATION: XR foot LT min 3V DATE: 09/14/2021 10:30 INDICATION: Left foot pain. TECHNIQUE: 4 views of left foot were obtained. COMPARISON: Left foot radiographs 03/19/2021 FINDINGS: There is moderate hallux valgus. No fracture. There is mild osteoarthritis of first metatar sophalangeal joint and some of the interphalangeal joints. There is an enthesophyte at plantar aspect of calcaneal tuberosity. IMPRESSION: 1. Mild polyarticular osteoarthritis. 2. Moderate hallux valgus. Reviewed, dictated and finalized at location A. LLENCE CONSULTANT
[2021-09-14 09:55] VITALS: BP 153/77; PULSE 68; RESP 14; TEMP 36.1; O2SAT 98
--- NOTE | 2021-09-14 11:20 | ED.FALL ---
HPI - Fall General Chief Complaint: Fall Stated Complaint: fall, l knee and foot injury Time Seen by Provider: 09/14/21 11:02 Source: patient Mode of arrival: ambulatory Limitations: no limitations History of Present Illness HPI Narrative: This is a 71-year-old female that presents the emergency department after a fall last night. Reports she tripped over a couch in a patient's room. Reports landing on her left knee and an injury to the left foot. Also reports she rome her neck. She did not hit her head or lose consciousness. Denies decreased range of motion or numbness. Related Data Home Medications Medication Instructions Recorded Confirmed Iron DAILY 06/29/20 07/01/21 atorvastatin PO 03/20/21 07/01/21 magnesium PO 03/20/21 07/01/21 tramadol PO 03/20/21 07/01/21 cholecalciferol (vitamin D3) 125 125 mcg PO DAILY 06/27/21 07/01/21 mcg (5,000 unit) capsule multivitamin with iron 1 tablet PO DAILY 06/27/21 07/01/21 multivitamin with minerals 1 tablet PO DAILY 06/27/21 07/01/21 vitamin B complex 1 tablet PO DAILY 06/27/21 07/01/21 Allergies Allergy/AdvReac Type Severity Reaction Status Date / Time No Known Allergies Allergy Verified 06/27/21 08:59 Review of Systems Review of Systems: CONSTITUTIONAL: Denies fever MUSCULOSKELETAL: Reports joint pain, and myalgia. NEUROLOGIC: Denies numbness, or weakness. All systems reviewed & are unremarkable except as noted in HPI and below PMFSH Past Medical History Medical History Anemia Anxiety Arthritis Depression GERD (gastroesophageal reflux disease) Gout Hair loss High cholesterol History of postoperative complication of surgical procedure History of sinus problem Hypercholesterolemia Hypertension Hypothyroid Kidney infection Kidney stones Memory loss Obstructive sleep apnea (~07/2020) Sleep apnea Sleep disorder UTI (urinary tract infection) Wears glasses Weight gain Surgical History Surgical History History of appendectomy History of carpal tunnel repair History of cholecystectomy History of gastric surgery History of removal of calculus of renal pelvis through percutaneous nephrostomy History of tonsillectomy Family History Family History Sibling Patient's sister is in good health Patient's brother is in good health Diabetes mellitus Neuropathy Arthritis High blood cholesterol Father Diabetes mellitus Other Hypertension Social History Social History Social History: , 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 Second hand tobacco smoke exposure: No Alcohol intake: current Drinks per week: 1 Alcohol use details: 1 per month Substance use: never Additional occupation/education comments: RN at [employer] Gender identity (if verbalized by the patient): Female Spiritual care concerns: No Exam Narrative: GENERAL: Well-appearing, well-nourished, and in no acute distress. HEAD: Normocephalic, atraumatic. EYES: PERRLA and EOMI. ENT: Nares clear, no rhinorrhea or epistaxis. Mucous membranes moist. Oropharynx without tonsillar hypertrophy exudate or other lesions. Bilateral TMs pearly sheehan non-bulging NECK: Supple. No adenopathy or masses. No midline cervical spine tenderness. Tender to palpation of the left trapezius musculature CHEST: Clear to auscultation. No respiratory distress. No wheezes rales or rhonchi HEART: Regular rate and rhythm. No murmur heard. Normal peripheral pulses. EXTREMITIES: Normal range of motion. No edema or obvious deformity. Normal DP pulses SKIN: Warm, dry, no rash. NEURO: No focal deficits. Alert and oriented x3. PSYCH: Normal mood and affect Course Vital Signs Vital signs: Vital Signs Temperature 96.9 F L 09/14/21 09:55 Pul
[2021-09-14] MEDS: IBUPROFEN 400 MG TABLET PO (11:22)
== END 2021-09-14 11:40 | disposition home or self-care (01) ==
LOC: ANHED 11:27
PROVIDERS: Emergency Provider Emergency Medicine; PCP Internal Medicine
DX: S99.922A Unspecified injury of left foot, initial encounter (principal); S80.02XA Contusion of left knee, initial encounter; S16.1XXA Strain of muscle, fascia and tendon at neck level, initial encounter; D64.9 Anemia, unspecified; E78.00 Pure hypercholesterolemia, unspecified; I10 Essential (primary) hypertension; E03.9 Hypothyroidism, unspecified; K21.9 Gastro-esophageal reflux disease without esophagitis; M10.9 Gout, unspecified; M19.072 Primary osteoarthritis, left ankle and foot; M17.12 Unilateral primary osteoarthritis, left knee; G47.33 Obstructive sleep apnea (adult) (pediatric); Z87.440 Personal history of urinary (tract) infections; Z87.442 Personal history of urinary calculi; W18.09XA Striking against other object with subsequent fall, initial encounter
CPT/HCPCS: 72050; 73564; 73630; 99284; A9270

== ENCOUNTER 2021-10-04 07:45 | Outpatient (RCR) | payer OTHER, SELFPAY ==
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
--- NOTE | 2021-09-21 11:45 | PCPTNOTE ---
Patient no showed to appointment this date. Called and spoke with patient who states she forgot about her appointment today. Patient was notified of her upcoming appointment on Sep 25.
--- NOTE | 2021-10-04 08:28 | PTOPEVAL ---
PHYSICAL THERAPY PROGRESS REPORT Thank you for referring Angelita Byrd to [facility].? Please review, sign, date and return this plan of care CINDY. I agree with and certify that the following plan of care is medically necessary. Referring Physician Date Progress Diagnosis cervical strain Onset 08/29/2021 Subjective Information States that she she doesn't Query Text:As Reported By Patient/ have as much pain, doesn't Family need to use the pain medication as much, and does use heat as much. Self Report Pain Assessment Left Neck Reported Pain Level 3 Pain Description Spasms,Tightness Pain Frequency Acute,Continuous Pain Score Pain Score 3: Self Report Interventions Used Interventions Used By Clinicians Electrical Stimulation, Exercise,Heat Pain Relief Interventions Used By Heat,Medication Patient Cervical and Lumbar ROM Cervical ROM Cervical Flexion (0-60) 45 Query Text:Active in Degrees Cervical Extension (0-70) 60 Query Text:Active in Degrees Cervical Rotation Right (0-90) 65 Query Text:Active in Degrees Cervical Rotation Left (0-90) 55 Query Text:Active in Degrees Upper Extremity Range of Motion General Upper Extremity Range of Motion Reason Not Measured WFL/Left,WFL/Right Upper Extremity Muscle Strength Testing Scapular/Shoulder Right Shoulder Flexion Strength 5 Normal Shoulder Abduction Strength 5 Normal Shoulder Strength Comments design technician: 51lb/pressure Left Shoulder Flexion Strength 5 Normal Shoulder Abduction Strength 5 Normal Shoulder Medial Rotation Strength 5 Normal Shoulder Lateral Rotation Strength 5 Normal Shoulder Strength Comments design technician: 40lb/pressure General Exercise General Exercises Exercise Type Active,Resistive,Stretching Exercise Description - Hooklying cervical Query Text:Record Sets, Reps, retraction static hold 3-5 sec Resistance, and Position [id number] cues for mechaincs - Hooklying cervical retraction with gentle rotation with hold [id number] ea direction - supine red theraband bilateral HABD [id number] cues for cervical position with scapular movement - Hooklying red theraband bilateral shoulder external rotation [id number] cues for cervical position and scapular
--- NOTE | 2021-10-29 10:36 | PCPTNOTE ---
PHYSICAL THERAPY DISCHARGE NOTE Patient:Angelita Byrd Date of :1950 Angelita participated in therapy 3x/wk for 2 wks as ordered per worker's compensation physician. On 10/04/2021 she attended her last appointment. At that time she was to follow-up with physician and determine if she needed further therapy. We have not received communication regarding further PT; therefore she will be discharged at this time. Thank you for referring this patient to [facility]. Please review, sign, date and return this discharge summary CINDY. I have been updated about the patient's current status and I agree with discharge from the above service at this time. Referring Physician Date
== END 2021-12-03 07:40 | disposition home or self-care (01) ==
LOC: ANHPT 07:45
PROVIDERS: PCP Internal Medicine
DX: S16.1XXD Strain of muscle, fascia and tendon at neck level, subsequent encounter (principal)
CPT/HCPCS: 97014; 97110; 97140; 97162; G0283

== ENCOUNTER 2022-01-25 14:00 | Outpatient (CLI) | payer OTHER, SELFPAY ==
--- NOTE | ~2022-01-25 | XR_ITS ---
EXAMINATION: XR knee RT min 4V DATE: 01/25/2022 14:26 INDICATION: Right knee contusion and pain. TECHNIQUE: 4 views of right knee were obtained. COMPARISON: Right knee radiograph 04/04/2017 FINDINGS: Bone alignment is normal. No fracture. There is mild tricompartmental osteoarthritis. No kn ee joint effusion. IMPRESSION: 1. Mild right knee osteoarthritis. Reviewed, dictated and finalized at location A.
== END 2022-01-25 14:01 | disposition home or self-care (01) ==
LOC: ANHIMG 14:09
PROVIDERS: PCP Internal Medicine
DX: S80.01XA Contusion of right knee, initial encounter (principal); M17.11 Unilateral primary osteoarthritis, right knee
CPT/HCPCS: 73564

== ENCOUNTER 2022-02-27 18:12 | Emergency (ER) | payer MEDICARE, SELFPAY ==
[2022-02-27 18:15] VITALS: BP 137/77; PULSE 86; RESP 20; TEMP 37; O2SAT 98
--- NOTE | 2022-02-27 18:28 | ED.URI ---
HPI - URI/Sore Throat General Stated Complaint: FEVER/SORE THROAT/CONGESTION Time Seen by Provider: 02/27/22 18:20 Source: patient and RN notes reviewed Related Data Home Medications Medication Instructions Recorded Confirmed Iron DAILY 06/29/20 07/01/21 magnesium PO 03/20/21 07/01/21 tramadol PO 03/20/21 07/01/21 cholecalciferol (vitamin D3) 125 125 mcg PO DAILY 06/27/21 07/01/21 mcg (5,000 unit) capsule multivitamin with iron 1 tablet PO DAILY 06/27/21 07/01/21 multivitamin with minerals 1 tablet PO DAILY 06/27/21 07/01/21 vitamin B complex 1 tablet PO DAILY 06/27/21 07/01/21 Allergies Allergy/AdvReac Type Severity Reaction Status Date / Time No Known Allergies Allergy Verified 06/27/21 08:59 [facility] Past Medical History Medical History Anemia Anxiety Arthritis Depression GERD (gastroesophageal reflux disease) Gout Hair loss High cholesterol History of postoperative complication of surgical procedure History of sinus problem Hypercholesterolemia Hypertension Hypothyroid Kidney infection Kidney stones Memory loss Obstructive sleep apnea (~07/2020) Sleep apnea Sleep disorder UTI (urinary tract infection) Wears glasses Weight gain Surgical History Surgical History History of appendectomy History of carpal tunnel repair History of cholecystectomy History of gastric surgery History of removal of calculus of renal pelvis through percutaneous nephrostomy History of tonsillectomy Family History Family History Sibling Patient's sister is in good health Patient's brother is in good health Diabetes mellitus Neuropathy Arthritis High blood cholesterol Father Diabetes mellitus Other Hypertension Social History Social History Social History: , 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 Second hand tobacco smoke exposure: No Alcohol intake: current Drinks per week: 1 Alcohol use details: 1 per month Substance use: never Additional occupation/education comments: RN at [employer] Gender identity (if verbalized by the patient): Female Spiritual care concerns: No Course Vital Signs Vital signs: Vital Signs Temperature 98.6 F 05/04/22 18:15 Pulse Rate 86 02/27/22 18:15 Respiratory Rate 20 02/27/22 18:15 Blood Pressure 137/77 02/27/22 18:15 Pulse Oximetry 98 02/27/22 18:15 Temperature 98.6 F 02/27/22 18:15 Pulse Rate 86 02/27/22 18:15 Respiratory Rate 20 02/27/22 18:15 Blood Pressure 137/77 02/27/22 18:15 Pulse Oximetry 98 02/27/22 18:15 Discharge Plan Discharge Prescriptions: No Action magnesium PO RF: 0 tramadol PO RF: 0 multivitamin with minerals [Hair,Skin and Nails] Tablet 1 tablet PO DAILY RF: 0 multivitamin with iron [Daily Multiple Vitamins/Iron] Tablet 1 tablet PO DAILY RF: 0 cholecalciferol (vitamin D3) 125 mcg (5,000 unit) capsule 125 mcg PO DAILY RF: 0 vitamin B complex [B Complex-Vitamin B12] Tablet 1 tablet PO DAILY RF: 0 Iron DAILY RF: 0 levothyroxine 112 mcg tablet 112 mcg PO DAILY Qty: 90 RF: 1 hydrochlorothiazide 12.5 mg tablet 12.5 mg PO DAILY Qty: 90 RF: 1 pantoprazole 40 mg tablet,delayed release (DR/EC) 40 mg PO QAM Qty: 90 RF: 1 simvastatin 20 mg tablet 20 mg PO HS Qty: 90 RF: 1 amlodipine 10 mg tablet 10 mg PO DAILY Qty: 90 RF: 1 bupropion HCl 150 mg tablet sustained-release 12 hr 150 mg PO BID Qty: 180 RF: 1 allopurinol 100 mg tablet 100 mg PO DAILY Qty: 90 RF: 1 citalopram 20 mg tablet 20 mg PO DAILY Qty: 90 RF: 1 montelukast [Singulair] 10 mg tablet 10 mg PO DAILY Qty: 60 RF: 1
--- NOTE | 2022-02-27 18:33 | ED.URI ---
HPI - URI/Sore Throat General Chief Complaint: Upper Respiratory Infection Stated Complaint: FEVER/SORE THROAT/CONGESTION Time Seen by Provider: 02/27/22 18:20 Source: patient and RN notes reviewed History of Present Illness HPI Narrative: Patient is a 72-year-old female who presents the urgent care with complaints of fever, sore throat and congestion. Patient states that she does work on the COVID floor at [employer] and has had 1 COVID-patient recently. Patient states her symptoms started 2 days ago and she has been taking Benadryl and fever reducers as needed. Patient also reports that they cough without shortness of breath or wheezing. No other acute complaints. No acute distress noted. Patient aware of the plan of care. Some parts of this dictation were generated by voice recognition software and may contain typographical and/or grammatical inaccuracies. Related Data Home Medications Medication Instructions Recorded Confirmed Iron 1 tab-cap DAILY 06/29/20 02/27/22 cholecalciferol (vitamin D3) 125 125 mcg PO DAILY 06/27/21 02/27/22 mcg (5,000 unit) capsule multivitamin with iron 1 tablet PO DAILY 06/27/21 02/27/22 multivitamin with minerals 1 tablet PO DAILY 06/27/21 02/27/22 vitamin B complex 1 tablet PO DAILY 06/27/21 02/27/22 magnesium 1 tablet PO DIRECTED 02/27/22 02/27/22 Allergies Allergy/AdvReac Type Severity Reaction Status Date / Time No Known Allergies Allergy Verified 06/27/21 08:59 Review of Systems Review of Systems: CONSTITUTIONAL: Reports a fever EYES: Denies visual changes, redness, or discharge. ENT: Reports of sinus congestion, rhinorrhea, postnasal drainage and sore throat CARDIOVASCULAR: Denies chest pain, palpitations, or edema. RESPIRATORY: Reports of cough without dyspnea GASTROINTESTINAL: Denies abdominal pain, nausea, vomiting, or diarrhea. GENITOURINARY: Denies dysuria or hematuria. SKIN: Denies rash or itching. MUSCULOSKELETAL: Denies back pain, joint pain, or myalgia. NEUROLOGIC: Denies headache, numbness, or weakness. All other systems reviewed are negative, except as documented in HPI. [facility] Past Medical History Medical History Anemia Anxiety Arthritis Depression GERD (gastroesophageal reflux disease) Gout Hair loss High cholesterol History of postoperative complication of surgical procedure History of sinus problem Hypercholesterolemia Hypertension Hypothyroid Kidney infection Kidney stones Memory loss Obstructive sleep apnea (~07/2020) Sleep apnea Sleep disorder UTI (urinary tract infection) Wears glasses Weight gain Surgical History Surgical History History of appendectomy History of carpal tunnel repair History of cholecystectomy History of gastric surgery History of removal of calculus of renal pelvis through percutaneous nephrostomy History of tonsillectomy Family History Family History Sibling Patient's sister is in good health Patient's brother is in good health Diabetes mellitus Neuropathy Arthritis High blood cholesterol Father Diabetes mellitus Other Hypertension Social History Social History Social History: , 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 Second hand tobacco smoke exposure: No Alcohol intake: current Drinks per week: 1 Alcohol use details: 1 per month Substance use: never Additional occupation/education comments: RN at [employer] Gender identity (if verbalized by the patient): Female Spiritual care concerns: No Comments At the time of my signature, I reviewed and agree with the nursing past medical, surgical, social, and family history. There is no relevant family history pertinent to the patient complaint. Exam Narrative: GENERA
== END 2022-02-27 19:05 | disposition home or self-care (01) ==
PROVIDERS: Emergency Provider Nurse Practitioner Family; PCP Internal Medicine
DX: U07.1 COVID-19 (principal); I10 Essential (primary) hypertension; E03.9 Hypothyroidism, unspecified
CPT/HCPCS: 87081; 87426; 87804; 87880; 99213; C9803; G0463

== ENCOUNTER 2022-06-13 09:28 | Emergency (ER) | payer OTHER, MEDICARE, SELFPAY ==
--- NOTE | ~2022-06-13 | XR_ITS ---
EXAMINATION: XR foot LT min 3V DATE: 06/13/2022 10:20 INDICATION: Left foot pain TECHNIQUE: Dorsoplantar, lateral, and 2 oblique views of the left foot were obtained. COMPARISON: 09/14/2021 FINDINGS: There is an acute, oblique fracture at the medial base of the fifth proximal phalanx which extends to the fifth metatarsophalangeal joint. Soft tissue swelling surrounds the fracture. There is moderate osteoarthritis of the first metatarsophalangeal joint and several interphalangeal joints. M oderate hallux valgus is noted. A plantar calcaneal enthesophyte is noted. IMPRESSION: 1. Acute intra-articular fracture at the medial base of the fifth proximal phalanx. Reviewed, dictated and finalized at location A. IMPRESSION: 1. Acute intra-articular fracture at the medial base of the fifth proximal phal anx.
[2022-06-13 09:33] VITALS: BP 146/74; PULSE 74; RESP 18; TEMP 36.4; O2SAT 100
--- NOTE | 2022-06-13 10:10 | ED.LOWEXIN ---
HPI - Extremity Injury (Lower) General Chief Complaint: Extremity Injury, Lower <Cindy Arzola PA-C - Last Filed: 06/13/22 12:09> Stated Complaint: L foot injury <DEANNE Weaver Last Filed: 06/13/22 12:09> Time Seen by Provider: 06/13/22 09:45 <DEANNE Weaver Last Filed: 06/13/22 12:09> Source: patient <DEANNE Weaver Last Filed: 06/13/22 12:09> Mode of arrival: ambulatory <DEANNE Weaver Last Filed: 06/13/22 12:09> Limitations: no limitations <DEANNE Weaver Last Filed: 06/13/22 12:09> History of Present Illness HPI Narrative: This is a 72-year-old female that presents to the emergency department for left foot pain after an injury last week. Reports she tripped and fell at work. She did not hit her head or lose consciousness. No other injuries. Reports that she has had left, lateral foot pain. Worse with ambulation and relieved with rest. She noted that her foot started to become swollen which prompted her to be seen. Denies decreased range of motion or numbness <DEANNE Weaver Last Filed: 06/13/22 12:09> Related Data Home Medications: Home Medications Medication Instructions Recorded Confirmed Iron 1 tab-cap DAILY 06/29/20 03/04/22 cholecalciferol (vitamin D3) 125 125 mcg PO DAILY 06/27/21 03/04/22 mcg (5,000 unit) capsule multivitamin with iron (Daily 1 tablet PO DAILY 06/27/21 03/04/22 Multiple Vitamins with Iron tablet) multivitamin with minerals 1 tablet PO DAILY 06/27/21 03/04/22 (Hair,Skin and Nails tablet) vitamin B complex (B 1 tablet PO DAILY 06/27/21 03/04/22 Complex-Vitamin B12 tablet) magnesium 1 tablet PO DIRECTED 02/27/22 03/04/22 <DEANNE Weaver Last Filed: 06/13/22 12:09> Allergies/Adverse Reactions: Allergies Allergy/AdvReac Type Severity Reaction Status Date / Time No Known Allergies Allergy Verified 06/13/22 09:57 <Cindy Arzola PA-C - Last Filed: 06/13/22 12:09> Review of Systems Review of Systems: CONSTITUTIONAL: Denies fever MUSCULOSKELETAL: Reports joint pain, and myalgia. NEUROLOGIC: Denies numbness, or weakness. <Cindy Arzola PA-C - Last Filed: 06/13/22 12:09> All systems reviewed & are unremarkable except as noted in HPI and below <Cindy Arzola PA-C - Last Filed: 06/13/22 12:09> [facility] Past Medical History Medical History: Medical History (Updated 06/13/22 @ 12:06 by Cindy Arzola PA-C) Anemia Anxiety Arthritis Depression GERD (gastroesophageal reflux disease) Gout Hair loss High cholesterol History of postoperative complication of surgical procedure History of sinus problem Hypercholesterolemia Hypertension Hypothyroid Kidney infection Kidney stones Memory loss Obstructive sleep apnea (~07/2020) Sleep apnea Sleep disorder UTI (urinary tract infection) Wears glasses Weight gain <Cindy Arzola PA-C - Last Filed: 06/13/22 12:09> Surgical History Surgical History: Surgical History (Updated 03/26/22 @ 08:53 by Luke Bone) History of appendectomy History of carpal tunnel repair History of cholecystectomy History of gastric surgery History of removal of calculus of renal pelvis through percutaneous nephrostomy History of tonsillectomy <Cindy Arzola PA-C - Last Filed: 06/13/22 12:09> Family History Family History: Family History (System 03/26/22 @ 08:53 by Luke Bone) Sibling Patient's sister is in good health Patient's brother is in good health Diabetes mellitus Neuropathy Arthritis High blood cholesterol Father Diabetes mellitus Other Hypertension <Cindy Arzola PA-C - Last Filed: 06/13/22 12:09> Social History Social History: Social History (System 03/26/22 @ 08:53 by Luke Bone) Social History: , 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 Second hand tobacco smoke exposure: No Alcohol intake: current Drinks per week: 1 Alc
[2022-06-13 11:00] VITALS: BP 123/88; PULSE 88; RESP 19; O2SAT 97
[2022-06-13] MEDS: KETOROLAC 30 MG/ML VIAL (*BKC) IM (11:05)
== END 2022-06-13 12:30 | disposition home or self-care (01) ==
PROVIDERS: Emergency Provider Emergency Medicine; PCP Internal Medicine
DX: S92.515A Nondisplaced fracture of proximal phalanx of left lesser toe(s), initial encounter for closed fracture (principal); W01.0XXA Fall on same level from slipping, tripping and stumbling without subsequent striking against object, initial encounter
CPT/HCPCS: 73630; 96372; 99284; J1885

== ENCOUNTER 2022-07-11 13:37 | Emergency (ER) | payer MEDICARE, SELFPAY ==
--- NOTE | ~2022-07-11 | CT_ITS ---
EXAMINATION: CT cervical spine wo con DATE: 07/11/2022 14:33 INDICATION: Head injury. TECHNIQUE: Computed tomography (CT) of the cervical spine was performed without intravenous contrast. Automated exposure control and iterative reconstruction technique were employed. The dose-length pro duct was 459.19 mGy-cm. COMPARISON: Cervical spine radiographs 09/14/2021 FINDINGS: Bone alignment is normal. Vertebral body heights are normal. Intervertebral disc heights ar e normal. The following disc levels are specifically discussed: C2-C3: There is no uncovertebral joint osteoarthritis. There is moderate right and severe left facet joint osteoarthritis. There is no neural foraminal stenosis. There is no central canal stenosis. C3-C4: There is no uncovertebral joint osteoarthritis. There is severe bilateral facet joint osteoart hritis. There is mild left neural foraminal stenosis. There is no central canal stenosis. C4-C5: There is no uncovertebral joint osteoarthritis. There is mild right and moderate left facet kirt int osteoarthritis. There is no neural foraminal stenosis. There is no central canal stenosis. C5-C6: There is no uncovertebral joint osteoarthritis. There is moderate right facet joint osteoarthr itis. There is no neural foraminal stenosis. There is no central canal stenosis. C6-C7: There is no uncovertebral joint osteoarthritis. There is no facet joint osteoarthritis. There is no neural foraminal stenosis. There is no central canal stenosis. C7-T1: There is no uncovertebral joint osteoarthritis. There is no facet joint osteoarthritis. There is no neural foraminal stenosis. There is no central canal stenosis. IMPRESSION: 1. No fracture. 2. Mild cervical spondylosis. Reviewed, dictated and finalized at location A.
--- NOTE | ~2022-07-11 | CT_ITS ---
EXAMINATION: CT brain wo con DATE: 07/11/2022 14:33 INDICATION: Head injury. TECHNIQUE: Computed tomography (CT) of the head was performed without intravenous contrast. The mA wa s adjusted according to patient size. Iterative reconstruction technique was employed. The dose-lengt h product was 605.33 mGy-cm. COMPARISON: None FINDINGS: There is no intracranial hemorrhage, acute infarction, or abnormal intracranial mass lesion . The ventricles are normal in size. The orbits are normal. There is a small right mastoid effusion. There is mucosal thickening in the paranasal sinuses. There is thickening and sclerosis of the bojorquez of left maxillary sinus, consistent with chronic sinusitis. There is a posterior scalp laceration. Th ere is a posterior scalp hematoma. IMPRESSION: 1. Normal brain. 2. Chronic sinusitis. Reviewed, dictated and finalized at location A.
[2022-07-11 13:49] VITALS: BP 144/87; PULSE 70; RESP 16; TEMP 36.2; O2SAT 100
--- NOTE | 2022-07-11 14:07 | ED.FALL ---
HPI - Fall General Chief Complaint: Fall Stated Complaint: fall head trauma Time Seen by Provider: 07/11/22 14:00 History of Present Illness HPI Narrative: 72 years old white female tripped over a rolling stool and fell struck the back of her head the edge of a chair, causing laceration, no loss of consciousness, no neck pain or other injuries. Patient slightly nauseated. Related Data Home Medications Medication Instructions Recorded Confirmed Iron 1 tab-cap DAILY 06/29/20 06/21/22 cholecalciferol (vitamin D3) 125 125 mcg PO DAILY 06/27/21 06/21/22 mcg (5,000 unit) capsule multivitamin with iron (Daily 1 tablet PO DAILY 06/27/21 06/21/22 Multiple Vitamins with Iron tablet) multivitamin with minerals 1 tablet PO DAILY 06/27/21 06/21/22 (Hair,Skin and Nails tablet) vitamin B complex (B 1 tablet PO DAILY 06/27/21 06/21/22 Complex-Vitamin B12 tablet) magnesium 1 tablet PO DIRECTED 02/27/22 06/21/22 acetaminophen 325 mg tablet 325 mg PO Q6H PRN 07/03/22 (Tylenol) biotin 10,000 mcg capsule mcg PO 07/03/22 calcium citrate 250 mg PO BID 07/03/22 furosemide 20 mg tablet (Lasix) 20 mg PO QAM 07/03/22 ibuprofen 200 mg capsule (Motrin 200 mg PO Q6H PRN 07/03/22 IB) progesterone micronized 200 mg 200 mg PO QHS 07/03/22 capsule tramadol 50 mg tablet 50 mg PO Q6H PRN 07/03/22 Allergies Allergy/AdvReac Type Severity Reaction Status Date / Time No Known Allergies Allergy Verified 06/21/22 11:50 Review of Systems Review of Systems: All systems reviewed & are unremarkable except as noted in HPI and below PMFSH Past Medical History Medical History Anemia Anxiety Arthritis Depression Frequent falls GERD (gastroesophageal reflux disease) Gout Hair loss High cholesterol History of postoperative complication of surgical procedure History of sinus problem Hypercholesterolemia Hypertension Hypothyroid Kidney infection Kidney stones Memory loss Obstructive sleep apnea (~07/2020) Sleep apnea Sleep disorder UTI (urinary tract infection) Wears glasses Weight gain Surgical History Surgical History History of appendectomy History of carpal tunnel repair History of cholecystectomy History of gastric surgery History of removal of calculus of renal pelvis through percutaneous nephrostomy History of tonsillectomy Family History Family History Sibling Patient's sister is in good health Patient's brother is in good health Diabetes mellitus Neuropathy Arthritis High blood cholesterol Father Diabetes mellitus Other Hypertension Social History Social History (Updated 06/21/22 @ 11:54 by Juliette Melgar MA) Social History: , 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 Smoking status: Never smoker Second hand tobacco smoke exposure: No Alcohol intake: current Drinks per week: 1 Alcohol use details: 1 per month Substance use: never Additional occupation/education comments: RN at [employer] Gender identity (if verbalized by the patient): Female Spiritual care concerns: No Exam Narrative: General appearance: Well-developed, well-nourished Skin: Normal color Head: Normocephalic, nontraumatic Eyes: Clear conjunctiva ENT: Oropharynx normal, ears normal, nose normal Neck: Supple, nontender Chest and respiratory: Airway patent, no respiratory distress, no accessory muscle use Heart: Regular rate/rhythm Abdomen: Soft, nontender, no organomegaly, quiet bowel sounds Vascular: Normal peripheral pulses, normal capillary refill. Musculoskeletal: Normal range of motion, nontender back Neurologic: Alert and oriented ?3, [employer] is normal as tested, no gross motor deficit
[2022-07-11] MEDS: TETANUS,DIPHTHERIA,AC PERTUSSIS ADULT (0.5 ML) BOOSTRIX IM (14:22)
[2022-07-11] MEDS: HYDROcodone/acetaminophen (*CRX) 5-325 MG TABLET 1 TAB PO (15:36)
== END 2022-07-11 16:57 | disposition home or self-care (01) ==
PROVIDERS: Emergency Provider Emergency Medicine; PCP Internal Medicine
DX: S01.01XA Laceration without foreign body of scalp, initial encounter (principal); Z23 Encounter for immunization; J32.9 Chronic sinusitis, unspecified; M47.812 Spondylosis without myelopathy or radiculopathy, cervical region; W18.09XA Striking against other object with subsequent fall, initial encounter
CPT/HCPCS: 12002; 70450; 72125; 90471; 90715; 99284; A9270

== ENCOUNTER 2022-07-17 09:03 | Outpatient (CLI) | payer MEDICARE, SELFPAY ==
[2022-07-17 09:47] LABS: Basophils Absolute Auto 0.1 K/mm3 (0.0-0.1); Basophils Percent Auto 0.8 % (0.2-1.2); Eosinophils Absolute Auto 0.1 K/mm3 (0-0.3); Hematocrit 38.3 % (37.0-47.0); Hemoglobin 12.4 g/dL (12.0-15.0); Immature Granulocyte Absolute 0.03 K/mm3 (0.00-0.031); Immature Granulocyte Percent A 0.5 % (0-0.5); Lymphocytes Absolute Auto 1.37 K/mm3 (0.9-3.2); Lymphocytes Percent Auto 22.6 % (18.3-44.2); Mean Corpuscular HGB Conc 32.4 g/dl (32-36); Mean Corpuscular Hemoglobin 32.9 pg (26-34); Mean Corpuscular Volume 101.6 fl (80-100); Mean Platelet Volume 9.6 fl (7.4-10.4); Monocytes Absolute Auto 0.6 K/mm3 (0.1-0.6); Monocytes Percent Auto 10.6 % (2.6-8.5); Neutrophils Absolute Auto 3.8 K/mm3 (1.3-6.7); Neutrophils Percent Auto 63.5 % (45.5-73.1); Platelet Count Result 250 k/mm3 (150-375); Red Blood Count 3.77 M/mm3 (4.2-5.4); Red Cell Distribution Width 13.3 % (11.5-14.5); White Blood Count 6.1 K/mm3 (4.5-10.0)
[2022-07-17 10:18] LABS: Hemoglobin A1C 5.9 % (<5.7)
[2022-07-17 10:20] LABS: LDL Cholesterol Direct 79 mg/dL
[2022-07-17 10:32] LABS: Alanine Aminotransferase 21 U/L (6-35); Albumin Level 3.8 g/dL (3.5-5.1); Alkaline Phosphatase 57 U/L (38-126); Anion Gap 13 mmol/L (8-16); Aspartate Amino Transferase 27 U/L (14-36); Bilirubin,Total 0.5 mg/dL (0.2-1.3); Blood Urea Nitrogen 16 mg/dL (7-17); Calcium 8.4 mg/dL (8.4-10.2); Carbon Dioxide 23 mmol/L (22-30); Chloride 105 mmol/L (98-107); Cholesterol 164 mg/dL (0-200); Estimated Glomerular Filt Rate > 60; Glucose 132 mg/dL (65-110); HDL Direct 52 mg/dL; Potassium 2.8 mmol/L (3.4-5.0); Sodium 141 mmol/L (137-145); Triglycerides 101 mg/dL (<150); Uric Acid 4.7 mg/dL (2.5-7.5)
[2022-07-17 10:34] LABS: Free T4 Free Thyroxine 0.77 ng/mL (0.78-2.19)
[2022-07-17 11:54] LABS: Folic Acid > 20.0 ng/mL (2.76->20)
== END 2022-07-17 09:04 | disposition home or self-care (01) ==
PROVIDERS: PCP Internal Medicine; Visit Provider Internal Medicine
DX: E03.9 Hypothyroidism, unspecified (principal); M10.9 Gout, unspecified; R53.83 Other fatigue; E78.00 Pure hypercholesterolemia, unspecified; R73.9 Hyperglycemia, unspecified; I10 Essential (primary) hypertension
CPT/HCPCS: 36415; 80053; 80061; 82607; 82746; 83036; 84439; 84443; 84550; 85025

== ENCOUNTER 2022-08-02 07:49 | Outpatient (CLI) | payer MEDICARE, SELFPAY ==
[2022-08-02 08:51] LABS: Anion Gap 9 mmol/L (8-16); Blood Urea Nitrogen 27 mg/dL (7-17); Calcium 8.9 mg/dL (8.4-10.2); Carbon Dioxide 21 mmol/L (22-30); Chloride 106 mmol/L (98-107); Estimated Glomerular Filt Rate 55; Glucose 150 mg/dL (65-110); Potassium 3.7 mmol/L (3.4-5.0); Sodium 136 mmol/L (137-145)
== END 2022-08-02 07:50 | disposition home or self-care (01) ==
LOC: ANHLAB 07:51
PROVIDERS: PCP Internal Medicine; Visit Provider Internal Medicine
DX: E87.5 Hyperkalemia (principal)
CPT/HCPCS: 36415; 80048

== ENCOUNTER 2022-10-02 09:05 | Outpatient (CLI) | payer MEDICARE, SELFPAY ==
--- NOTE | ~2022-10-02 | MM_ITS ---
EXAMINATION: MM screening [facility] BI w ureil HISTORY: Screening mammogram TECHNIQUE: Craniocaudal and mediolateral oblique 3-D tomosynthesis images were obtained and synthetic 2-D images were generated. CAD analysis was submitted and interpreted. COMPARISON: 08/02/2021, 07/18/2020, 06/01/2019 BREAST PARENCHYMAL COMPOSITION: The breasts are almost entirely fatty. FINDINGS: No suspicious mass, calcification, or architectural distortion are identified in either shikha ast to suggest malignancy. There has been no suspicious interval change. IMPRESSION: 1. No mammographic evidence of malignancy. 2. Recommend routine screening mammography in one year. BI-RADS Category 1: Negative Reviewed, dictated and finalized at location A. S [employer] DEVELOPMENT MANAGER
== END 2022-10-02 09:06 | disposition home or self-care (01) ==
LOC: ANHIMG 09:06
PROVIDERS: PCP Internal Medicine; Visit Provider Physician Assistant
DX: Z12.31 Encounter for screening mammogram for malignant neoplasm of breast (principal)
CPT/HCPCS: 77063; 77067

== ENCOUNTER 2023-01-25 07:45 | Outpatient (CLI) | payer MEDICARE, SELFPAY ==
[2023-01-25 08:14] LABS: Basophils Percent Auto 0.6 % (0.2-1.2); Eosinophils Absolute Auto 0.1 K/mm3 (0-0.3); Hematocrit 39.5 % (37.0-47.0); Hemoglobin 12.9 g/dL (12.0-15.0); Immature Granulocyte Absolute 0.02 K/mm3 (0.00-0.031); Immature Granulocyte Percent A 0.3 % (0-0.5); Lymphocytes Absolute Auto 2.27 K/mm3 (0.9-3.2); Mean Corpuscular HGB Conc 32.7 g/dl (32-36); Mean Corpuscular Hemoglobin 34.4 pg (26-34); Mean Corpuscular Volume 105.3 fl (80-100); Mean Platelet Volume 9.6 fl (7.4-10.4); Monocytes Absolute Auto 0.8 K/mm3 (0.1-0.6); Monocytes Percent Auto 11.6 % (2.6-8.5); Neutrophils Absolute Auto 3.7 K/mm3 (1.3-6.7); Neutrophils Percent Auto 53.5 % (45.5-73.1); Platelet Count Result 272 k/mm3 (150-375); Red Blood Count 3.75 M/mm3 (4.2-5.4); Red Cell Distribution Width 13.9 % (11.5-14.5); White Blood Count 6.9 K/mm3 (4.5-10.0)
[2023-01-25 08:26] LABS: Alanine Aminotransferase 26 U/L (6-35); Albumin Level 4.3 g/dL (3.5-5.1); Alkaline Phosphatase 60 U/L (38-126); Anion Gap 5 mmol/L (8-16); Aspartate Amino Transferase 34 U/L (14-36); Bilirubin,Total 0.8 mg/dL (0.2-1.3); Blood Urea Nitrogen 23 mg/dL (7-17); Carbon Dioxide 34 mmol/L (22-30); Chloride 97 mmol/L (98-107); Cholesterol 161 mg/dL (0-200); Estimated Glomerular Filt Rate 44; Glucose 109 mg/dL (65-110); HDL Direct 57 mg/dL; Potassium 3.4 mmol/L (3.4-5.0); Sodium 136 mmol/L (137-145); Triglycerides 87 mg/dL (<150)
[2023-01-25 08:37] LABS: LDL Cholesterol Direct 78 mg/dL
[2023-01-25 08:40] LABS: Platelet Estimate Adequate (Adequate)
[2023-01-25 08:41] LABS: Macrocytosis 1+ (NORMAL); Schistocytes None Seen (NORMAL)
[2023-01-25 09:17] LABS: Free T4 Free Thyroxine 0.34 ng/mL (0.78-2.19)
[2023-01-25 09:41] LABS: Folic Acid > 20.0 ng/mL (2.76->20)
[2023-01-25 09:42] LABS: Thyroid Stimulating Hormone > 100.000 uIU/mL (0.465-4.680)
[2023-01-25 09:48] LABS: Hepatitis C Virus Antibody Negative (Negative)
== END 2023-01-25 07:46 | disposition home or self-care (01) ==
PROVIDERS: PCP Internal Medicine; Visit Provider Internal Medicine
DX: E03.9 Hypothyroidism, unspecified (principal); E78.00 Pure hypercholesterolemia, unspecified; R53.83 Other fatigue; R73.9 Hyperglycemia, unspecified; E53.8 Deficiency of other specified B group vitamins; Z11.59 Encounter for screening for other viral diseases
CPT/HCPCS: 36415; 80053; 80061; 82607; 82746; 83036; 84439; 84443; 85025; 86803

== ENCOUNTER 2023-05-10 07:53 | Outpatient (CLI) | payer MEDICARE, SELFPAY ==
[2023-05-10 10:15] LABS: Alanine Aminotransferase 26 U/L (6-35); Aspartate Amino Transferase 48 U/L (14-36)
[2023-05-10 10:16] LABS: Alanine Aminotransferase 26 U/L (6-35); Alkaline Phosphatase 52 U/L (38-126); Anion Gap 7 mmol/L (8-16); Aspartate Amino Transferase 34 U/L (14-36); Bilirubin,Total 0.6 mg/dL (0.2-1.3); Blood Urea Nitrogen 33 mg/dL (7-17); Calcium 9.4 mg/dL (8.4-10.2); Carbon Dioxide 33 mmol/L (22-30); Chloride 96 mmol/L (98-107); Estimated Glomerular Filt Rate 49; Glucose 93 mg/dL (65-110); Potassium 3.2 mmol/L (3.4-5.0); Sodium 136 mmol/L (137-145)
[2023-05-10 10:40] LABS: Free T4 Free Thyroxine 1.22 ng/mL (0.78-2.19)
== END 2023-05-10 07:54 | disposition home or self-care (01) ==
PROVIDERS: PCP Internal Medicine; Referring Provider Podiatrist Foot & Ankle Surgery; Visit Provider Internal Medicine
DX: B35.1 Tinea unguium (principal); E03.9 Hypothyroidism, unspecified
CPT/HCPCS: 36415; 80053; 84439; 84443; 84450; 84460

== ENCOUNTER 2023-06-11 14:53 | Outpatient (CLI) | payer MEDICARE, SELFPAY ==
--- NOTE | ~2023-06-11 | DEXA_ITS ---
Bone Density Report Name: DEEPAK HERNANDEZ Age: 73 Sex: Female Ethnicity: White Date of : 1950 Indication: postmenopausal; screening for osteoporosis; height loss; Referring Provider: SHERRI MARTIN Study: Bone densitometry was performed. Exam Date: June 11, 2023 Accession number: [id number] Bone Density: Region BMD T-score Z-score Classification AP Spine(L1, L2, L3) 1.205 1.7 3.8 Normal Femoral Neck (Left) 0.947 0.9 2.8 Normal Total Hip (Left) 1.058 1.0 2.5 Normal Femoral Neck (Right) 0.968 1.1 2.9 Normal Total Hip (Right) 1.058 1.0 2.5 Normal Total Hip Mean 1.058 1.0 2.5 Normal World Health Organization criteria for BMD impression classify patients as: Normal (T-score at or above -1.0), Osteopenia (T-score between -1.0 and -2.5), or Osteoporosis (T-score at or below -2.5). 10-year Fracture Risk: FRAX not reported because: All T-scores for Spine Total, Hip Total, Femoral Neck at or above -1.0 Previous Exams: Region Exam Age BMD T-score BMD Change BMD Change Date g/cm2 vs Baseline vs Previous AP Spine (L1-L3) 06/11/2023 73 1.205 1.7 0.045 (3.9%)* 0.045 (3.9%)* 06/01/2019 69 1.160 1.3 Total Hip(Left) 06/11/2023 73 1.058 1.0 -0.044 (-4.0%) -0.044 (-4.0%) 06/01/2019 69 1.102 1.3 Total Hip(Right) 06/11/2023 73 1.058 1.0 -0.001 (-0.1%) -0.001 (-0.1%) 06/01/2019 69 1.059 1.0 *Denotes significance at 95% confidence level, LSC for AP Spine = 0.022 g/cm2, LSC for Total Hip = 0.027 g/cm2 # Denotes dissimilar scan types or analysis methods Clinical Information Provided by Patient: Has used the following medications: Vitamin D, Calcium Patient maximum height was 68 Menopause Age: 47 No regular weight bearing exercise Drinks caffeinated beverages Onset of menses at age 15 Number of children 1 Impression: The patient has normal bone mass. The BMD for the Total Hip(Left) decreased, changing by -4.0% since the last DXA exam. Discussion: LOW RISK OF FRACTURE; BONE DENSITY IS WELL ABOVE THE MINIMUM DESIRABLE LEVEL AND ABOVE AVERAGE FOR AGE AND SEX AT ALL SKELETAL SITES TESTED. This person's bone density is above expected limits for age and sex. This is rarely clinically significant, but should be pursued if there are significant musculoskeletal complaints. The patient should follow a healthful lifestyle (good nutrition with adequate calcium and vitamin D, and appropriate weight-bearing exercise).
== END 2023-06-11 14:54 | disposition home or self-care (01) ==
LOC: ANHIMG 14:54
PROVIDERS: PCP Internal Medicine; Visit Provider Internal Medicine
DX: M81.0 Age-related osteoporosis without current pathological fracture (principal)
CPT/HCPCS: 77080

== ENCOUNTER 2023-07-01 15:39 | Outpatient (CLI) | payer MEDICARE, SELFPAY ==
[2023-07-01 16:37] LABS: Anion Gap 4 mmol/L (8-16); Blood Urea Nitrogen 29 mg/dL (7-17); Carbon Dioxide 34 mmol/L (22-30); Chloride 99 mmol/L (98-107); Potassium 3.6 mmol/L (3.4-5.0); Sodium 137 mmol/L (137-145)
[2023-07-01 16:38] LABS: Alanine Aminotransferase 19 U/L (6-35); Albumin Level 4.2 g/dL (3.5-5.1); Alkaline Phosphatase 51 U/L (38-126); Aspartate Amino Transferase 28 U/L (14-36); Bilirubin,Total 0.4 mg/dL (0.2-1.3); Calcium 9.1 mg/dL (8.4-10.2); Estimated Glomerular Filt Rate > 60; Glucose 101 mg/dL (65-110)
[2023-07-01 17:05] LABS: Thyroid Stimulating Hormone 0.819 uIU/mL (0.465-4.680)
[2023-07-01 17:11] LABS: Free T4 Free Thyroxine 1.69 ng/mL (0.78-2.19)
== END 2023-07-01 15:40 | disposition home or self-care (01) ==
LOC: ANHLAB 15:40
PROVIDERS: PCP Internal Medicine; Visit Provider Internal Medicine
DX: I10 Essential (primary) hypertension (principal); E03.9 Hypothyroidism, unspecified
CPT/HCPCS: 36415; 80053; 84439; 84443

== ENCOUNTER 2023-07-11 12:56 | Outpatient (CLI) | payer MEDICARE, SELFPAY ==
--- NOTE | ~2023-07-11 | US_ITS ---
US renal BI 07/11/2023 13:38 Procedure: Realtime transabdominal ultrasound of the kidneys and bladder. Indication: Renal cyst Comparison: No prior studies for comparison. Findings: Renal echotexture is normal bilaterally without hydronephrosis, contour deforming mass or r enal calculus. There is a left renal cyst measuring 1.3 cm. No solid renal masses. The right kidney m easures 11.5 cm and left kidney measures 9.6 cm. Bladder within normal limits. Impression: 1: Left renal cyst measuring 1.3 cm. Reviewed, dictated and finalized at location B. Impression: 1: Left renal cyst measuring 1.3 cm.
== END 2023-07-11 12:57 | disposition home or self-care (01) ==
PROVIDERS: PCP Internal Medicine; Visit Provider Internal Medicine
DX: N28.1 Cyst of kidney, acquired (principal)
CPT/HCPCS: 76775

== ENCOUNTER 2023-08-13 11:50 | Outpatient (CLI) | payer MEDICARE, SELFPAY ==
[2023-08-13 12:54] LABS: HIV 1/2 Ab P24 Ag Result Negative (Negative)
[2023-08-13 13:14] LABS: Hepatitis C Virus Antibody Negative (Negative)
[2023-08-13 13:18] LABS: Rapid Plasma Reagin Non-Reactive (NonReactive)
== END 2023-08-13 11:51 | disposition home or self-care (01) ==
PROVIDERS: PCP Internal Medicine; Visit Provider Obstetrics & Gynecology
DX: Z01.89 Encounter for other specified special examinations (principal)
CPT/HCPCS: 36415; 86592; 86695; 86696; 86703; 86803; G0432

== ENCOUNTER → 2023-08-15 13:02 | Outpatient (CLI) | payer MEDICARE, SELFPAY ==
--- NOTE | ~2023-08-15 | US_ITS ---
EXAMINATION: US pelvic complete w TV DATE: 08/15/2023 13:26 INDICATION: Postmenopausal bleeding Comparison:No prior studies for comparison. TECHNIQUE: Multiple transabdominal and endovaginal sonographic images of the pelvis performed. FINDINGS: The uterus measures 7.8 x 4 x 3.3 cm. There is a uterine fibroid measuring 1.8 cm. The endo metrial complex measures 9 mm. The ovaries are not visualized. There is no free fluid in the pelvis. There are no abnormal masses seen on either side. IMPRESSION: 1. Thickened endomtrial complex. The differential diagnosis includes endometrial hyperplasia, polyp a nd carcinoma. Biopsy is recommended. 2: Hypoechoic uterine fibroid measuring 1.8 x 1.4 x 1.3 cm. Reviewed, dictated and finalized at location A. IMPRESSION: 1. Thickened endomtrial complex. The differential diagnosis includes endometria l hyperplasia, polyp and carcinoma. Biopsy is recommended. 2: Hypoechoic uterine fibroid measuring 1.8 x 1.4 x 1.3 cm.
== END ==
PROVIDERS: PCP Internal Medicine; Visit Provider Obstetrics & Gynecology
DX: N95.0 Postmenopausal bleeding (principal); D25.9 Leiomyoma of uterus, unspecified; R93.89 Abnormal findings on diagnostic imaging of other specified body structures
CPT/HCPCS: 76830; 76856

== ENCOUNTER 2023-08-20 08:24 | Outpatient (CLI) | payer MEDICARE, SELFPAY ==
--- NOTE | 2023-09-09 17:00 | WPDSLEEPSTUD ---
Sleep Study Date of Study: 08/20/23 Ordering Provider: Da Overton DO Interpreting Physician: Janet Chairez DO Sleep Study Type: CPAP Titration Height: 1.65 m Weight: 91.172 kg Body Mass Index: 33.4 Neck Circumference (inches): 13 [place]: 10 Reason for Sleep Study Home sleep test on August 03, 2020 with mild obstructive sleep apnea syndrome with an AHI of 14.2, desaturation 81% mainly obstructive events with 65% of her apneas scored as obstructive, a third of the events were central apneas, and 5 minutes spent below 88% saturation with moderate snoring. PAP Titration on 09/20/2020 did not show an optimal pressure but was prescribed BPAP 20/16 cm H2O. The patient's BPAP mask broke and she stopped using it. She lost 70 pounds and thought her sleep apnea resolved but states she has apneas. Sleep History The patient is a 73-year-old female with anxiety, depression, frequent falls, GERD, gout, hyperlipidemia, hypertension, hypothyroidism, kidney stones, memory loss and history of LOWELL on BPAP that had a sleep study ordered by her primary care physician to restart PAP therapy. The patient is a registered nurse by trade she occasionally awakens from sleep short of breath. She rarely awakens at night with heartburn, belching or cough. She frequently snores and is occasionally loud enough that others complain. She rarely has trouble sleeping when she has a cold. She occasionally wakes up gasping for air throughout the night. She occasionally has breathing problems at night. She occasionally sweats excessively at night. She denies having heart palpitations or irregular heartbeats during the night. She rarely falls asleep during the day but never while driving. She denies sleep paralysis, cataplexy and hypnagogic / hypnopompic hallucinations. She denies having trouble at school or work due to sleepiness. She denies feeling afraid of going to sleep. She rarely has nightmares and rarely remembers her dreams. She occasionally has thoughts racing through her mind. She occasionally feels sad or depressed. She occasionally has anxiety. She occasionally has muscular tension. She rarely notices parts of her body jerk. She denies kicking during the night. She occasionally has crawling and aching feelings in her legs and occasionally has leg pain during the night. She occasionally grinds her teeth during sleep but never awakens with morning jaw pain. She is frequently bothered by pain during the day but rarely awakened by pain during the night. She frequently wakes up feeling stiff in the morning. She occasionally wakes up with sore or achy muscles. She occasionally wakes up with pain in the neck, spine or other joints. She goes to bed between 9-10 p.m. on weekdays and between 10-11 p.m. on the weekends. It takes her 15 minutes to fall asleep. She wakes up 2-3 times throughout the night to urinate and is able to fall back asleep within 15 minutes. She wakes up between 6:30-7 a.m. on weekdays and between 7-8 a.m. on the weekends. She typically gets 6-7 hours of sleep per night. She will spend 15-30 minutes in bed after waking up in the morning. She currently lives with her . She will consume caffeinated beverages within 2 hours of bedtime. She denies engaging in physical exercise before bedtime. She will read before falling asleep. She will take naps in the afternoon or the evening and they are refreshing. She consumes 5 cups of caffeinated beverage per day. She denies tobacco, alcohol and recreational drug use. [facility] Past Medical History Medical History Anemia Anxiety Arthritis Depression Frequent falls GERD (gastroesophageal reflux disease) Gout Hair loss High cholesterol History of postoperative complication of surgical procedure History of sinus problem HSV-1 infection HSV-2 infection Hypercholesterolemia Hypertension Hypothyroid Kidney infectio
[2023-09-09 17:04] VITALS: BMI 33.4
== END 2023-08-21 06:09 | disposition home or self-care (01) ==
LOC: ANHCSM 08:25
PROVIDERS: PCP Internal Medicine; Visit Provider Internal Medicine
DX: G47.33 Obstructive sleep apnea (adult) (pediatric) (principal); G47.30 Sleep apnea, unspecified
CPT/HCPCS: 95811

== ENCOUNTER 2023-09-09 09:58 | Outpatient (CLI) | payer MEDICARE, SELFPAY ==
[2023-09-09 10:57] LABS: Anion Gap 7 mmol/L (8-16); Blood Urea Nitrogen 25 mg/dL (7-17); Calcium 8.9 mg/dL (8.4-10.2); Carbon Dioxide 30 mmol/L (22-30); Chloride 102 mmol/L (98-107); Estimated Glomerular Filt Rate 55; Glucose 94 mg/dL (65-110); Potassium 3.9 mmol/L (3.4-5.0); Sodium 139 mmol/L (137-145)
== END 2023-09-09 09:59 | disposition home or self-care (01) ==
LOC: ANHSURGERY 10:03
PROVIDERS: Anesthesiology; PCP Internal Medicine; Visit Provider Obstetrics & Gynecology
DX: Z01.818 Encounter for other preprocedural examination (principal); Z79.899 Other long term (current) drug therapy
CPT/HCPCS: 36415; 80048

== ENCOUNTER 2023-09-12 00:22 | Day surgery (SDC) | payer MEDICARE, SELFPAY ==
[2023-09-08 13:59] VITALS: BMI 32.5
--- NOTE | 2023-09-08 14:05 | PC.NURSE ---
Report to the Outpatient Waiting Room, entrance under the green pavilion located off [facility], at time _1130_ on date _[id number]_. Planned Procedure Time: _130pm_. Time changes happen often and if your time is changed the preop area will call you the afternoon before. - You and your visitor will be asked to self-screen and do not enter if you have any COVID symptoms. - A mask is optional within the hospital at this time. Patients may have clear liquids (water, carbonated beverages, clear teas, apple juice) until 3 hours prior to surgery with a maximum of 20 ounces. - No food from midnight until time of surgery Take the following medications with a SIP of water the morning of surgery: ____Amlodipine, Bupropion, and Levothyroxine DO NOT STOP ANY OF YOUR OTHER PRESCRIPTION MEDICATIONS PRIOR TO SURGERY ?EXCEPT THE FOLLOWING Medications to discontinue per physician Vitamins Date to take last diwq__[id number] Please no make-up, nail vietnamese, hairspray, perfume, deodorant, or body powder the day of surgery. No jewelry (including any body piercings) or valuables the day of surgery, leave them at home. Please take a shower or bath the night before, or the morning of, surgery with an antibacterial soap. Wear comfortable, loose fitting clothing. - Jewelry must be removed prior to entering the operating room. Rings and piercings that are not removed may be cut off. - The hospital will not accept responsibility for valuables. - Please leave all valuables, including medications, at home the day of surgery. If you are going home after surgery, a licensed crew truck driver must drive you home. - NO public transportation without another adult if you receive anesthesia. - We recommend that an adult stay with you for 24 hours following discharge. - We also recommend that you do not drive, make important decision, drink alcoholic beverages, or take any drugs that were not prescribed by your health care provider for at least 24 hours after your discharge time. Follow any additional instructions given to you from your surgeon. If you or anyone in your household have experienced Covid symptoms in the past week, please notify your surgeon or the nurse liaison at the phone number below for possible testing. Telephone instructions given to __Rose___and asked if any additional questions and then verbalized understanding. Patient advised to call surgeon office or pre surgery nurse liaison [phone] if any additional questions.
--- NOTE | 2023-09-11 12:44 | PM.IMHP ---
H&P: HPI History of Present Illness Date/Time: 09/11/23 12:44 Chief Complaint: Postmenopausal bleeding and abnormal ultrasound finding. Narrative: Patient is a 73-year-old female who presented with episode of postmenopausal bleeding. She had a subsequent ultrasound which showed a thickened endometrial stripe of 9 mm. She was informed of recommendation for endometrial sampling and opted for D and C hysteroscopy and removal of any lesion if present. Review of Systems Review of Systems: All systems reviewed & are unremarkable except as noted in HPI and below Cardiovascular: Cardiovascular: Reports no additional cardiovascular complaints, Denies chest pain and Denies dyspnea Respiratory: Respiratory: Reports no additional respiratory complaints and Denies dyspnea Gastrointestinal: Gastrointestinal: Reports abdominal pain, Denies change in bowel habits, Denies diarrhea, Denies nausea and Denies vomiting Genitourinary: Genitourinary: Reports pelvic pain Musculoskeletal: Musculoskeletal: Reports back pain Integumentary/Breasts: Skin/Breast: Reports system reviewed and no additional complaints, except as docu Neurologic: Reports system reviewed and no additional complaints, except as documented [facility] Past Medical History Medical History Anemia Anxiety Arthritis Depression Frequent falls GERD (gastroesophageal reflux disease) Gout Hair loss High cholesterol History of postoperative complication of surgical procedure History of sinus problem HSV-1 infection HSV-2 infection Hypercholesterolemia Hypertension Hypothyroid Kidney infection Kidney stones Memory loss Obstructive sleep apnea (~07/2020) Wears glasses Weight gain Surgical History Surgical History History of appendectomy History of carpal tunnel repair History of cholecystectomy History of gastric surgery History of removal of calculus of renal pelvis through percutaneous nephrostomy History of tonsillectomy Family History Family History Sibling Patient's sister is in good health Patient's brother is in good health Diabetes mellitus Neuropathy Arthritis High blood cholesterol Father Diabetes mellitus Other Hypertension Social History Social History Social History: , 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 Smoking status: Never smoker Second hand tobacco smoke exposure: No Alcohol intake: current Drinks per week: 1 Alcohol use details: 1 per month Substance use: never Lack of Transportation: No Lack of Food: Never True Current Housing: I Have Housing Concerned About Future Housing: No Difficulty Paying Gas/Electric Bills: No Difficulty Paying for Meds: No Currently Unemployed: No Education: Master's Degree or Higher Difficulty w/ Childcare or Family Care: No Living arrangements: with family Occupation/Education: occupation Additional occupation/education comments: RN at [employer] Gender identity (if verbalized by the patient): Female Spiritual care concerns: No Meds Home Medications and Allergies Home Medications Medication Instructions Recorded Confirmed Type Iron 1 tab-cap PO DAILY 06/29/20 08/22/23 History cholecalciferol (vitamin D3) 125 125 mcg PO DAILY 06/27/21 08/22/23 History mcg (5,000 unit) capsule multivitamin with iron (Daily 1 tablet PO DAILY 06/27/21 08/22/23 History Multiple Vitamins with Iron tablet) vitamin B complex (B 1 tablet PO DAILY 06/27/21 08/22/23 History Complex-Vitamin B12 tablet) magnesium 1 tablet PO DIRECTED 02/27/22 08/22/23 History acetaminophen 325 mg tablet 325 mg PO Q6H PRN Pain 07/03/22 08/22/23 History (Tylenol) biotin 10,000 mcg capsule 10,000 mcg PO DAILY 07/03/22 08/22/23 History c
[2023-09-12 10:30] VITALS: BP 124/54; PULSE 73; RESP 20; TEMP 36.4; O2SAT 99
--- NOTE | 2023-09-12 10:37 | WPDHPUPDATE1 ---
History and Physical Update Update Date/Time: 09/12/23 10:37 History and Physical has been reviewed, including an updated exam of the patient. There are NO changes in the patient's condition. Risks, benefits, and alternatives have been discussed and questions answered. Patient agrees to proceed with procedure.
--- NOTE | 2023-09-12 10:45 | WPDANESEPPF ---
Anes - Initial Pre Proc Eval Procedure: Operation Date: 09/12/23 12:30 Proposed Procedures p Hysteroscopy Dilation and Curettage with Removal of Any Endometrial Lesion, If Necessary - Jorje Bob MD Date/Time: 09/12/23 10:45 Surgeon: Jorje Bob MD Pre Op Diagnosis: Thickened Endometrial Stripe Patient Data Age: 73 Gender: F Height: 1.66 m Weight: 90 kg Allergies Allergy/AdvReac Type Severity Reaction Status Date / Time No Known Allergies Allergy Verified 09/08/23 13:54 Home Medications Medication Instructions Recorded Confirmed Type Iron 1 tab-cap PO DAILY 06/29/20 08/22/23 History cholecalciferol (vitamin D3) 125 125 mcg PO DAILY 06/27/21 08/22/23 History mcg (5,000 unit) capsule multivitamin with iron (Daily 1 tablet PO DAILY 06/27/21 08/22/23 History Multiple Vitamins with Iron tablet) vitamin B complex (B 1 tablet PO DAILY 06/27/21 08/22/23 History Complex-Vitamin B12 tablet) magnesium 1 tablet PO DIRECTED 02/27/22 08/22/23 History acetaminophen 325 mg tablet 325 mg PO Q6H PRN Pain 07/03/22 08/22/23 History (Tylenol) biotin 10,000 mcg capsule 10,000 mcg PO DAILY 07/03/22 08/22/23 History calcium citrate 250 mg PO BID 07/03/22 08/22/23 History ibuprofen 200 mg capsule (Motrin 200 mg PO Q6H PRN Pain 07/03/22 08/22/23 History IB) tramadol 50 mg tablet 50 mg PO Q6H PRN Pain 07/03/22 08/22/23 History dietary supplement cap PO 01/22/23 08/22/23 History levothyroxine 112 mcg tablet 112 mcg PO DAILY #90 tabs 01/27/23 08/22/23 Rx montelukast 10 mg tablet 10 mg PO DAILY #90 tabs 04/02/23 08/22/23 Rx (Singulair) hydrochlorothiazide 12.5 mg tablet 12.5 mg PO DAILY #90 tabs 06/22/23 08/22/23 Rx bupropion HCl 300 mg 24 hr tablet, 300 mg PO QAM #90 tabs 07/02/23 08/22/23 Rx extended release simvastatin 20 mg tablet 20 mg PO HS #90 tabs 08/10/23 08/22/23 Rx furosemide 20 mg tablet (Lasix) 40 mg PO QAM PRN swelling 08/13/23 08/22/23 History allopurinol 100 mg tablet 100 mg PO DAILY #90 tabs 08/29/23 Rx amlodipine 10 mg tablet 10 mg PO DAILY #90 tabs 08/29/23 Rx pantoprazole 40 mg tablet,delayed 40 mg PO QAM #90 tabs 08/29/23 Rx release citalopram 20 mg tablet 20 mg PO HS 09/08/23 History Patient hx anesthesia problems: none Family hx anesthesia problems: none Results Review: All pre-operative results and documents have been reviewed as part of the pre-operative evaluation. [facility] Past Medical History Medical History Anemia Anxiety Arthritis Depression Frequent falls GERD (gastroesophageal reflux disease) Gout Hair loss High cholesterol History of postoperative complication of surgical procedure History of sinus problem HSV-1 infection HSV-2 infection Hypercholesterolemia Hypertension Hypothyroid Kidney infection Kidney stones Memory loss Obstructive sleep apnea (~07/2020) Wears glasses Weight gain Surgical History Surgical History History of appendectomy History of carpal tunnel repair History of cholecystectomy History of gastric surgery History of removal of calculus of renal pelvis through percutaneous nephrostomy History of tonsillectomy Family History Family History Sibling Patient's sister is in good health Patient's brother is in good health Diabetes mellitus Neuropathy Arthritis High blood cholesterol Father Diabetes mellitus Other Hypertension Social History Social History Social History: , 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 Smoking status: Never smoker Second hand tobacco smoke exposure: No Alcohol intake: current Drinks per week: 1 Alcohol use details: 1 per month Substance use: never Lack of Transportation: No Lack of Food: Never True Current Housing: I Have
[2023-09-12] MEDS: ACETAMINOPHEN 500 MG TABLET 1000 MG PO (11:05)
[2023-09-12] MEDS: LACTATED RINGERS 1,000 ML 30 ML IV CONT (11:25)
[2023-09-12] MEDS: ceFAZolin 2 GM/D5W 50 ML 2 GM/50 ML BAG IVPB (11:35)
[2023-09-12] MEDS: LIDOCAINE HCL 1% LOCAL INJ 20 ML VIAL 10 ML INFILTRATE (11:44)
[2023-09-12 11:57] VITALS: BP 112/55; PULSE 63; RESP 16; O2SAT 97
--- NOTE | 2023-09-12 12:01 | W.PM.PROC2 ---
Procedure Note - Detailed Date of Procedure 09/12/23 Pre-op Diagnosis Thickened Endometrial Stripe, postmenopausal bleeding Post-op Diagnosis Same Procedure Performed Dilation and curettage hysteroscopy diagnostic, removal of endometrial lesion with Aveta. Surgeon Jorje Bob MD Anesthesia MAC and Local Indications Patient with post menopausal bleeding and thickened endometrial stripe. Findings Uterus sound to 7cm. The uterine cavity was atrophic. There were 3 polyp originating from upper endometrial cavity near tubal ostia. Description of Procedure After form consent was obtained patient was taken to the operating room and adequate IV sedation was administered. She was placed in high lithotomy position and prepped and draped in sterile fashion. Attention was turned to the vagina. Speculum inserted. Single-tooth tenaculum placed on anterior lip of the cervix. 1% lidocaine was injected at the cervical vaginal interface at 2, 5, 8 and 10 position. Hydrodilation wound with the hysteroscope was used to enter the cervical canal and uterine cavity. Upon entering the cavity there was noted to be a large long polyp appearing growth originating from the upper cavity near the ostia and there are also 2 other polyps from the upper opposite side of the cavity near the other ostia. The Invitae instrument was used to remove the lesions completely. The hysteroscope was removed. The single-tooth tenaculum was removed. Hemostasis was noted. The speculum was removed. The patient tolerated procedure well. Estimated Blood Loss 5 Drains No Packing No Pathology Yes (Endometrial curettage and shavings.) Complications No immediate complications Condition Stable Disposition Same day [facility] Billing Surgery - Charge Forward: Surgery Billing
[2023-09-12 12:25] VITALS: BP 125/57; PULSE 62; RESP 18
[2023-09-12 12:54] VITALS: BP 136/68; PULSE 61; RESP 18
== END 2023-09-12 12:54 | disposition home or self-care (01) ==
PROVIDERS: PCP Internal Medicine; Visit Provider Obstetrics & Gynecology
PROC: 0U5B8ZZ Destruction of Endometrium, Via Natural or Artificial Opening Endoscopic (ICD-10-PCS; CPT 58563; principal; 2023-09-12 12:30)
DX: N95.0 Postmenopausal bleeding (principal); N84.0 Polyp of corpus uteri; D64.9 Anemia, unspecified; F41.9 Anxiety disorder, unspecified; F32.A Depression, unspecified; K21.9 Gastro-esophageal reflux disease without esophagitis; E78.00 Pure hypercholesterolemia, unspecified; I10 Essential (primary) hypertension; E03.9 Hypothyroidism, unspecified; G47.33 Obstructive sleep apnea (adult) (pediatric); Z90.49 Acquired absence of other specified parts of digestive tract; Z79.891 Long term (current) use of opiate analgesic; E66.9 Obesity, unspecified; Z68.34 Body mass index [BMI] 34.0-34.9, adult
CPT/HCPCS: 58558; 36415; 80048; 88305; A9270; J0690; J2704; J3010; J7120

== ENCOUNTER 2023-11-06 09:53 | Outpatient (CLI) | payer MEDICARE, SELFPAY ==
--- NOTE | ~2023-11-06 | MM_ITS ---
EXAMINATION: MM screening [facility] BI w uriel HISTORY: Screening mammogram TECHNIQUE: Craniocaudal and mediolateral oblique 3-D tomosynthesis images were obtained and synthetic 2-D images were generated. CAD analysis was submitted and interpreted. COMPARISON: 10/02/2022, 08/02/2021, 07/18/2020 BREAST PARENCHYMAL COMPOSITION: There are scattered areas of fibroglandular density. FINDINGS: No suspicious mass, calcification, or architectural distortion are identified in either shikha ast to suggest malignancy. There has been no suspicious interval change. IMPRESSION: 1. No mammographic evidence of malignancy. 2. Recommend routine screening mammography in one year. BI-RADS Category 1: Negative Reviewed, dictated and finalized at location A. COUNTER
[2023-11-06 10:36] LABS: Basophils Absolute Auto 0.1 K/mm3 (0.0-0.1); Basophils Percent Auto 0.8 % (0.2-1.2); Eosinophils Absolute Auto 0.1 K/mm3 (0-0.3); Eosinophils Percent Auto 1.4 % (0-4.4); Hematocrit 41.3 % (37.0-47.0); Hemoglobin 12.9 g/dL (12.0-15.0); Immature Granulocyte Absolute 0.02 K/mm3 (0.00-0.031); Immature Granulocyte Percent A 0.3 % (0-0.5); Lymphocytes Absolute Auto 1.84 K/mm3 (0.9-3.2); Lymphocytes Percent Auto 27.7 % (18.3-44.2); Mean Corpuscular HGB Conc 31.2 g/dl (32-36); Mean Corpuscular Hemoglobin 32.9 pg (26-34); Mean Corpuscular Volume 105.4 fl (80-100); Mean Platelet Volume 9.7 fl (7.4-10.4); Monocytes Absolute Auto 0.7 K/mm3 (0.1-0.6); Monocytes Percent Auto 9.8 % (2.6-8.5); Platelet Count Result 270 k/mm3 (150-375); Red Blood Count 3.92 M/mm3 (4.2-5.4); Red Cell Distribution Width 12.8 % (11.5-14.5); White Blood Count 6.7 K/mm3 (4.5-10.0)
[2023-11-06 10:50] LABS: Alanine Aminotransferase 29 U/L (6-35); Albumin Level 3.6 g/dL (3.5-5.1); Alkaline Phosphatase 58 U/L (38-126); Anion Gap 4 mmol/L (8-16); Aspartate Amino Transferase 37 U/L (14-36); Bilirubin,Total 0.6 mg/dL (0.2-1.3); Blood Urea Nitrogen 21 mg/dL (7-17); Calcium 8.8 mg/dL (8.4-10.2); Carbon Dioxide 33 mmol/L (22-30); Chloride 100 mmol/L (98-107); Cholesterol 147 mg/dL (0-200); Estimated Glomerular Filt Rate 55; Glucose 101 mg/dL (65-110); HDL Direct 58 mg/dL; Hemoglobin A1C 5.3 % (<5.7); Potassium 3.3 mmol/L (3.4-5.0); Sodium 137 mmol/L (137-145); Triglycerides 51 mg/dL (<150)
[2023-11-06 11:01] LABS: LDL Cholesterol Direct 71 mg/dL
[2023-11-06 11:13] LABS: Free T4 Free Thyroxine 1.34 ng/mL (0.78-2.19)
[2023-11-06 11:21] LABS: Thyroid Stimulating Hormone 0.283 uIU/mL (0.465-4.680)
[2023-11-06 11:40] LABS: Vitamin B12 > 1000.0 pg/mL (239-931)
== END 2023-11-06 09:54 | disposition home or self-care (01) ==
PROVIDERS: PCP Internal Medicine; Visit Provider Obstetrics & Gynecology
DX: R73.9 Hyperglycemia, unspecified (principal); R53.83 Other fatigue; I10 Essential (primary) hypertension; E03.9 Hypothyroidism, unspecified; D75.89 Other specified diseases of blood and blood-forming organs; Z12.31 Encounter for screening mammogram for malignant neoplasm of breast
CPT/HCPCS: 36415; 77063; 77067; 80053; 80061; 82607; 83036; 84439; 84443; 85025

== ENCOUNTER 2024-02-05 07:28 | Outpatient (CLI) | payer MEDICARE, SELFPAY ==
[2024-02-05 08:35] LABS: Free T4 Free Thyroxine 1.49 ng/mL (0.78-2.19)
== END 2024-02-05 07:29 | disposition home or self-care (01) ==
PROVIDERS: PCP Internal Medicine; Visit Provider Physician Assistant
DX: E03.9 Hypothyroidism, unspecified (principal)
CPT/HCPCS: 36415; 84439; 84443

== ENCOUNTER 2024-03-05 10:51 | Outpatient (CLI) | payer MEDICARE, SELFPAY ==
--- NOTE | ~2024-03-05 | CT_ITS ---
EXAMINATION: CT sinus wo con DATE: 03/05/2024 11:03 INDICATION: Deviated nasal septum TECHNIQUE: Computed tomography (CT) of the paranasal sinuses was performed without intravenous contra st. Coronal reconstructions were obtained. Iterative reconstruction technique was employed. The dose- length product was 392.92 mGy-cm. COMPARISON: None FINDINGS: Nasal septum is midline. There is near complete opacification of the left maxillary sinus which demon strates mildly thickened sclerotic bojorquez consistent with chronic sinusitis. There is complete occlusi on of the left ostiomeatal unit. There is mild mucosal thickening in the left ethmoid sinus and parti al opacification of the left frontal sinus. The right ostiomeatal unit remains patent. Maxilla is richelle ntulous. There are 4 screws for a dental implant extending across anterior maxilla with the distal ti ps within the anterior-inferior aspect of the nasal cavity, 2 on the right and 3 on the left. There i s some mucosal thickening surrounding the tips of the left sided screws which occludes the space surr ounding the anterior left inferior turbinate. There is also some osteolysis with increased lucency rogers rrounding the left-sided screws. Additional missing teeth and dental restorations along the mandible. Mastoid air cells and middle ear cavities are clear. Orbits are normal. . IMPRESSION: 1. Sinus disease as detailed above including near complete opacification of the left maxillary sinus which demonstrates thickened sclerotic bojorquez consistent with chronic sinusitis. 2. There are some osteolysis with increased lucency surrounding a few of the left-sided screws for fi xation of a dental plate along the maxilla suggesting loosening. The screws extend into the anteroinf erior aspect of the nasal cavity where there is surrounding mucosal thickening. Reviewed, dictated and finalized at location A. IMPRESSION: 1. Sinus disease as detailed above including near complete opacification of the left maxillary sinus which demonstrates thickened sclerotic bojorquez consistent w ith chronic sinusitis. 2. There are some osteolysis with increased lucency surrounding a few of the le ft-sided screws for fixation of a dental plate along the maxilla suggesting loo sening. The screws extend into the anteroinferior aspect of the nasal cavity wh ere there is surrounding mucosal thickening.
== END 2024-03-05 10:52 ==
LOC: GOSHIMG 10:52
PROVIDERS: PCP Internal Medicine; Visit Provider Otolaryngology
DX: J34.2 Deviated nasal septum (principal); M89.58 Osteolysis, other site; J34.89 Other specified disorders of nose and nasal sinuses
CPT/HCPCS: 70486

== ENCOUNTER 2024-03-17 15:29 | Outpatient (NON) | payer MEDICARE, SELFPAY | END 2024-03-17 15:30 | disposition home or self-care (01) | LOC: ANHGOSHLAB 15:30 | PROVIDERS: PCP Internal Medicine; Visit Provider Otolaryngology | DX: J32.9 Chronic sinusitis, unspecified (principal) | CPT/HCPCS: 87070; 87075; 87205 ==

== ENCOUNTER 2024-03-25 11:03 | Outpatient (CLI) | payer MEDICARE, SELFPAY | END 2024-03-25 11:04 | disposition home or self-care (01) | PROVIDERS: PCP Internal Medicine; Visit Provider Otolaryngology | DX: H93.13 Tinnitus, bilateral (principal); H90.3 Sensorineural hearing loss, bilateral; J32.0 Chronic maxillary sinusitis; J34.2 Deviated nasal septum | CPT/HCPCS: 92557; 92567 ==

== ENCOUNTER 2024-04-06 10:57 | Outpatient (CLI) | payer MEDICARE, SELFPAY ==
--- NOTE | ~2024-04-06 | XR_ITS ---
EXAM: XR hand RT min 3V DATE: 04/06/2024 11:14 HISTORY: M18.11 - Unilateral primary osteoarthritis of first carpo... . COMPARISON: None available. FINDINGS: Normal mineralization. No fracture or dislocation. No lytic or blastic lesion. Arthritic c hanges typical of osteoarthritis in the DIP joints of the fingers, interphalangeal joint of the thumb , first CMC joint, and first MCP joint. No erosion or periosteal change. Soft tissues within normal l imits. IMPRESSION: Polyarticular osteoarthritis. Reviewed, dictated and finalized at location K.
== END 2024-04-06 10:58 | disposition home or self-care (01) ==
PROVIDERS: PCP Internal Medicine; Visit Provider Plastic Surgery
DX: M15.9 Polyosteoarthritis, unspecified (principal)
CPT/HCPCS: 73130

== ENCOUNTER 2024-04-07 10:26 | Outpatient (CLI) | payer MEDICARE, SELFPAY ==
--- NOTE | 2024-04-07 10:37 | ECG_ITS ---
Test Date: 2024-04-07 10:47:28 Measurements Intervals [place] Rate: 64 P: 44 VA: 195 QRS: -24 QRSD: 98 T: -8 QT: 390 QTc: 402 Interpretive Statements SINUS RHYTHM BORDERLINE LEFT AXIS DEVIATION [QRS AXIS < -20] VOLTAGE CRITERIA FOR LVH [MEETS CRITERIA IN ONE OF: R(aVL), S(V1), R(V5), R(V5/V6)+S(V1)] No previous ECG available for comparison Electronically Signed On 04-07-2024 11:40:16 CDT by Radha Cardoza M.D.
[2024-04-07 12:08] LABS: Hematocrit 40.3 % (37.0-47.0); Hemoglobin 12.9 g/dL (12.0-15.0)
[2024-04-07 12:19] LABS: Anion Gap 6 mmol/L (4-12); Blood Urea Nitrogen 22 mg/dL (7-17); Calcium 9.1 mg/dL (8.4-10.2); Carbon Dioxide 30 mmol/L (22-30); Chloride 103 mmol/L (98-107); Estimated Glomerular Filt Rate > 60; Glucose 79 mg/dL (65-110); Potassium 3.5 mmol/L (3.4-5.0); Sodium 139 mmol/L (137-145)
== END 2024-04-07 10:27 | disposition home or self-care (01) ==
LOC: ANHSURGERY 10:28
PROVIDERS: Anesthesiology; PCP Internal Medicine; Visit Provider Otolaryngology
DX: Z78.9 Other specified health status (principal); I10 Essential (primary) hypertension
CPT/HCPCS: 36415; 80048; 85014; 85018; 93005

== ENCOUNTER 2024-04-12 00:52 | Day surgery (SDC) | payer MEDICARE, SELFPAY ==
--- NOTE | 2024-04-01 11:18 | PC.NURSE ---
Report to the Outpatient Waiting Room, entrance under the green pavilion located off [facility], at time 6:00 AM on date _04/12/24 . Planned Procedure Time: ___7:30AM . Time changes happen often and if your time is changed the preop area will call you the afternoon before. - You and your visitor will be asked to self-screen and do not enter if you have any COVID symptoms. - A mask is optional within the hospital at this time. Patients may have clear liquids (water, carbonated beverages, clear teas, apple juice) until 3 hours prior to surgery(4:30 AM) with a maximum of 20 ounces. - No food from midnight until time of surgery - Infants may have breast milk until 4 hours before surgery, infant formula 6 hours prior to surgery. - Children will be allowed to drink immediately following surgery. If applicable, please bring a bottle or sippy cup to assist with drinking. Juice, water, soda, and popsicles are readily available. For infants on formula, please bring formula the day of surgery. Pacifiers are allowed. Take the following medications with a SIP of water the morning of surgery: __AMLODIPINE,LEVOTHYROXINE, BUPROPION DO NOT STOP ANY OF YOUR OTHER PRESCRIPTION MEDICATIONS PRIOR TO SURGERY ?EXCEPT THE FOLLOWING Medications to discontinue per physician ___HOLD OZEMPIC 10 DAYS PRE OP PER ANESTHESIA LAST DOSE 03/29/24(TAKES ON MONDAYS) HOLD ALL VITAMINS AND SUPPLEMENTS 3 DAYS PRE OP PER ANESTHESIA .LAST DOSE 04/08/24 Please no make-up, nail romanian, hairspray, perfume, deodorant, or body powder the day of surgery. No jewelry (including any body piercings) or valuables the day of surgery, leave them at home. Please take a shower or bath the night before, or the morning of, surgery with an antibacterial soap. Wear comfortable, loose fitting clothing. Children are encouraged to wear pajamas. - Jewelry must be removed prior to entering the operating room. Rings and piercings that are not removed may be cut off. - The hospital will not accept responsibility for valuables. - Please leave all valuables, including medications, at home the day of surgery. If you are going home after surgery, a licensed front end loader driver must drive you home. - NO public transportation without another adult if you receive anesthesia. - We recommend that an adult stay with you for 24 hours following discharge. - We also recommend that you do not drive, make important decision, drink alcoholic beverages, or take any drugs that were not prescribed by your health care provider for at least 24 hours after your discharge time. For Pediatric surgeries, we recommend two adults accompany the child home. Follow any additional instructions given to you from your surgeon. If you or anyone in your household have experienced Covid symptoms in the past week, please notify your surgeon or the nurse liaison at the phone number below for possible testing. Telephone instructions given to ___PATIENT and asked if any additional questions and then verbalized understanding. Patient advised to call surgeon office or pre surgery nurse liaison [phone] if any additional questions.
[2024-04-01 11:29] VITALS: BMI 32.3
--- NOTE | 2024-04-11 15:49 | PM.IMHP ---
H&P: HPI History of Present Illness Date/Time: 04/11/24 15:49 Chief Complaint: Chronic sinusitis [facility] Past Medical History Medical History Anemia Anxiety Arthritis Depression Frequent falls GERD (gastroesophageal reflux disease) Gout Hair loss High cholesterol History of postoperative complication of surgical procedure History of sinus problem HSV-1 infection HSV-2 infection Hypercholesterolemia Hypertension Hypothyroid Kidney infection Kidney stones Memory loss Obstructive sleep apnea (~07/2020) Wears glasses Weight gain Surgical History Surgical History History of appendectomy History of carpal tunnel repair History of cholecystectomy History of gastric surgery History of hysteroscopy (~09/12/23[place] [facility] [place]. (PMB) Dr Bob. 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 (if verbalized by the patient): Female Spiritual care concerns: No Meds Home Medications and Allergies Home Medications Medication Instructions Recorded Confirmed Type Iron 1 tab-cap PO DAILY 06/29/20 04/12/24 History cholecalciferol (vitamin D3) 125 125 mcg PO DAILY 06/27/21 04/12/24 History mcg (5,000 unit) capsule multivitamin with iron (Daily 1 tablet PO DAILY 06/27/21 04/12/24 History Multiple Vitamins with Iron tablet) vitamin B complex (B 1 tablet PO DAILY 06/27/21 04/01/24 History Complex-Vitamin B12 tablet) magnesium 1 tablet PO DIRECTED 02/27/22 04/12/24 History acetaminophen 325 mg tablet 325 mg PO Q6H PRN Pain 07/03/22 04/12/24 History (Tylenol) biotin 10,000 mcg capsule 10,000 mcg PO DAILY 07/03/22 04/12/24 History calcium citrate 250 mg PO BID 07/03/22 04/12/24 History ibuprofen 200 mg capsule (Motrin 200 mg PO Q6H PRN Pain 07/03/22 04/12/24 History IB) tramadol 50 mg tablet 50 mg PO Q6H PRN Pain 07/03/22 04/01/24 History furosemide 20 mg tablet (Lasix) 40 mg PO PRN PRN swelling 08/13/23 04/12/24 History citalopram 20 mg tablet 20 mg PO HS 09/08/23 04/12/24 History levothyroxine 112 mcg tablet 112 mcg PO DAILY #90 tabs 11/20/23 04/12/24 Rx bupropion HCl 300 mg 24 hr tablet, 300 mg PO QAM #90 tabs 11/26/23 04/12/24 Rx extended release allopurinol 100 mg tablet 100 mg PO DAILY #90 tabs 01/23/24 04/12/24 Rx amlodipine 10 mg tablet 10 mg PO DAILY #90 tabs 01/23/24 04/12/24 Rx hydrochlorothiazide 12.5 mg tablet 12.5 mg PO DAILY #90 tabs 01/23/24 04/12/24 Rx montelukast 10 mg tablet 10 mg PO DAILY #90 tabs 01/23/24 04/12/24 Rx (Singulair) pantoprazole 40 mg tablet,delayed 40 mg PO QAM #90 tabs 01/23/24 04/12/24 Rx release semaglutide (weight loss) 2.4 2.4 mg subcut WEEKLY WEIGHT LOSS
[2024-04-12] VITALS (9 sets, daily range): BP systolic 110–139; BP diastolic 55–61; PULSE 59–70; RESP 10–20; TEMP 36.1–36.4; O2SAT 98–100
[2024-04-12] MEDS: ACETAMINOPHEN 500 MG TABLET 1000 MG PO (06:33)
--- NOTE | 2024-04-12 06:37 | WPDANESEPPF ---
Anes - Initial Pre Proc Eval Procedure: Operation Date: 04/12/24 07:30 Proposed Procedures p Image Guided Endoscopic Left Maxillary Antrostomy, Left Anterior Ethmoidectomy, Left Front Sinusotomy, - Helio Mcintosh MD s Possible Septoplasty - Helio Mcintosh MD Date/Time: 04/12/24 06:37 Surgeon: Helio Mcintosh MD Pre Op Diagnosis: chronic sinusitis, septal deviation Patient Data Age: 74 Gender: F Height: 1.68 m Weight: 90.75 kg Allergies Allergy/AdvReac Type Severity Reaction Status Date / Time No Known Allergies Allergy Verified 04/12/24 06:25 Home Medications Medication Instructions Recorded Confirmed Type Iron 1 tab-cap PO DAILY 06/29/20 04/01/24 History cholecalciferol (vitamin D3) 125 125 mcg PO DAILY 06/27/21 04/01/24 History mcg (5,000 unit) capsule multivitamin with iron (Daily 1 tablet PO DAILY 06/27/21 04/01/24 History Multiple Vitamins with Iron tablet) vitamin B complex (B 1 tablet PO DAILY 06/27/21 04/01/24 History Complex-Vitamin B12 tablet) magnesium 1 tablet PO DIRECTED 02/27/22 04/01/24 History acetaminophen 325 mg tablet 325 mg PO Q6H PRN Pain 07/03/22 04/01/24 History (Tylenol) biotin 10,000 mcg capsule 10,000 mcg PO DAILY 07/03/22 04/01/24 History calcium citrate 250 mg PO BID 07/03/22 04/01/24 History ibuprofen 200 mg capsule (Motrin 200 mg PO Q6H PRN Pain 07/03/22 04/01/24 History IB) tramadol 50 mg tablet 50 mg PO Q6H PRN Pain 07/03/22 04/01/24 History furosemide 20 mg tablet (Lasix) 40 mg PO PRN PRN swelling 08/13/23 04/01/24 History citalopram 20 mg tablet 20 mg PO HS 09/08/23 04/01/24 History levothyroxine 112 mcg tablet 112 mcg PO DAILY #90 tabs 11/20/23 04/01/24 Rx bupropion HCl 300 mg 24 hr tablet, 300 mg PO QAM #90 tabs 11/26/23 04/01/24 Rx extended release allopurinol 100 mg tablet 100 mg PO DAILY #90 tabs 01/23/24 04/01/24 Rx amlodipine 10 mg tablet 10 mg PO DAILY #90 tabs 01/23/24 04/01/24 Rx hydrochlorothiazide 12.5 mg tablet 12.5 mg PO DAILY #90 tabs 01/23/24 04/01/24 Rx montelukast 10 mg tablet 10 mg PO DAILY #90 tabs 01/23/24 04/01/24 Rx (Singulair) pantoprazole 40 mg tablet,delayed 40 mg PO QAM #90 tabs 01/23/24 04/01/24 Rx release semaglutide (weight loss) 2.4 2.4 mg subcut WEEKLY WEIGHT LOSS 02/26/24 04/01/24 History mg/0.75 mL subcutaneous pen injector simvastatin 20 mg tablet 20 mg PO HS #90 tabs 03/17/24 04/01/24 Rx Patient hx anesthesia problems: none Family hx anesthesia problems: none Results Review: All pre-operative results and documents have been reviewed as part of the pre-operative evaluation. [facility] Past Medical History Medical History Anemia Anxiety Arthritis Depression Frequent falls GERD (gastroesophageal reflux disease) Gout Hair loss High cholesterol History of postoperative complication of surgical procedure History of sinus problem HSV-1 infection HSV-2 infection Hypercholesterolemia Hypertension Hypothyroid Kidney infection Kidney stones Memory loss Obstructive sleep apnea (~07/2020) Wears glasses Weight gain Surgical History Surgical History History of appendectomy History of carpal tunnel repair History of cholecystectomy History of gastric surgery History of hysteroscopy (~09/12/23) [facility] D&C, Aveta. (PMB) Dr Bob. 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
[2024-04-12] MEDS: LACTATED RINGERS 1,000 ML 30 ML IV CONT ×2 (06:50→09:07)
--- NOTE | 2024-04-12 07:23 | WPDHPUPDATE1 ---
History and Physical Update Update Date/Time: 04/12/24 07:23 History and Physical has been reviewed, including an updated exam of the patient. There are NO changes in the patient's condition. Risks, benefits, and alternatives have been discussed and questions answered. Patient agrees to proceed with procedure.
[2024-04-12] MEDS: ceFAZolin 2 GM/D5W 50 ML 2 GM/50 ML BAG IVPB (07:30)
[2024-04-12] MEDS: OXYMETAZOLINE HCL 0.05% NAS 15 ML BTL (*BKC) 1 SPRAY NASAL (08:00)
[2024-04-12] MEDS: LIDO 1%/EPINEPHRINE 1:100,000 50 ML VIAL INFILTRATE (08:01)
[2024-04-12] MEDS: TOBRAMYCIN SULFATE 80 MG/2 ML VIAL 400 MG IRRIGATION (08:08)
--- NOTE | 2024-04-12 08:13 | SUR.OPER ---
Routine cultures of sinus abscess (aerobic, anaerobic, gram stain) sent with Ray ACOSTA and received by Julia.
[2024-04-12] MEDS: fentaNYL CITRATE INJ (*CRX) 100 MCG/2 ML VIAL 25 MCG IV PUSH (09:26)
[2024-04-12] MEDS: DICLOFENAC SODIUM 0.1% OPHTH SOLN 2.5 ML BOTTLE 1 DROP EACH EYE (09:56)
[2024-04-12] MEDS: ARTIFICIAL TEARS OPHTH SOLN 15 ML BOTTLE 1 DROP EACH EYE (09:56)
--- NOTE | 2024-04-12 09:59 | W.PM.PROC2 ---
Procedure Note - Detailed Date of Procedure 04/12/24 Pre-op Diagnosis chronic sinusitis, septal deviation Post-op Diagnosis Same Procedure Performed Left-sided maxillary antrostomy anterior ethmoidectomy frontal sinusotomy image guided endoscopic. Surgeon Helio Mcintosh MD Anesthesia General Indications See above Findings copious amounts of purulence in the left maxillary sinus the anterior ethmoid and the frontal loculated cell as well. These were copiously irrigated with sterile normal saline infused with tobramycin. The patient also had a a implant right she has the the the dental implants located in the nasal passage 1 going into the nasal lacrimal duct. Description of Procedure Patient identified consent verified preop. Patient with operating. Time-out performed. General anesthesia induced endotracheal tube secured. Patient prepped draped position procedure confirmed 2nd time-out performed. Image guidance initiated confirmed. Afrin-soaked pledgets placed for 5 minutes then removed. 0 degree endoscope utilized. Clear shot all the way up to the frontal. You can see there is granulation tissue from the floor the nose image guidance as well as palpation confirmed there was a firm object which corresponds to the Dental abutment. Maxillary antrostomy performed under image guidance with double ball-tip probe straight through cut backbiter image guided microdebrider. Copious amounts of purulence purulence was cultured. Maxillary sinus irrigated with lots of sterile normal saline infused with tobramycin. Great care was taken to ensure that the surgical os connected to the natural os. No damage to nasolacrimal duct on the back and. Anterior ethmoidectomy performed with image guidance Kerrison microdebrider. Frontal sinusotomy performed under image guidance with frontal image guided instruments. Had to get into the cell with the frontal seeker. This was then widened with Cobra and Hosemann instruments. Copious amounts of cheese like purulence located within the sella itself. This was irrigated with tobramycin infused sterile normal saline. Propel stent placed to keep the frontal open. Nasal passages irrigated out. Small amount of Nova pack was placed to catch any bleeding. This marked end of the procedure no complications care the patient back to Anesthesiology. I performed all dictated portions of procedure. Patient taken to PACU. Total blood loss 20 cc. Estimated Blood Loss 20 Drains No Packing Yes ( Nova pack) Pathology None sent Complications No immediate complications Condition Stable Disposition PACU [facility] Billing Surgery - Charge Forward: Surgery Billing
--- NOTE | 2024-04-12 10:00 | SUR.PHASEI ---
DR. LIRIANO NOTIFIED RE: PATIENT C/O LEFT EYE ITCHINESS, SORENESS, REDDENED APPEARANCE. EYE DROPS ORDERED.
[2024-04-12] MEDS: PROPARACAINE HCL 0.5% 15 ML OPHTH SOLN 1 DROP EACH EYE (10:10)
[2024-04-12] MEDS: oxyCODONE HCL (*CRX) 5 MG TAB IR PO (10:35)
== END 2024-04-12 11:05 | disposition home or self-care (01) ==
PROVIDERS: PCP Internal Medicine; Visit Provider Otolaryngology
PROC: (CPT 31256; principal; 2024-04-12 07:30)
PROC: (CPT 30520; 2024-04-12 07:30)
DX: J32.9 Chronic sinusitis, unspecified (principal); J34.2 Deviated nasal septum; I10 Essential (primary) hypertension; E78.00 Pure hypercholesterolemia, unspecified; E03.9 Hypothyroidism, unspecified; G47.33 Obstructive sleep apnea (adult) (pediatric); F41.9 Anxiety disorder, unspecified; F32.A Depression, unspecified; K21.9 Gastro-esophageal reflux disease without esophagitis; M10.9 Gout, unspecified; Z79.85 Long-term (current) use of injectable non-insulin antidiabetic drugs; Z98.84 Bariatric surgery status; E66.9 Obesity, unspecified; Z68.31 Body mass index [BMI] 31.0-31.9, adult
CPT/HCPCS: 31256; 31254; 31276; 61782; 87070; 87075; 87076; 87077; 87181; 87185; 87205; A9270; C2625; J0690; J1100; J2405; J2704; J3010; J3260; J7120

== ENCOUNTER 2024-05-04 00:51 | Outpatient (NON) | payer MEDICARE, SELFPAY | END 2024-05-04 00:52 | disposition home or self-care (01) | LOC: ANHGOSHLAB 00:53 | PROVIDERS: PCP Internal Medicine; Visit Provider Otolaryngology | DX: J32.9 Chronic sinusitis, unspecified (principal); J34.89 Other specified disorders of nose and nasal sinuses | CPT/HCPCS: 87070; 87075; 87205 ==

== ENCOUNTER 2024-05-05 14:15 | Outpatient (RCR) | payer MEDICARE, SELFPAY ==
--- NOTE | 2024-04-16 11:59 | OTOPEVAL1 ---
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 Reporting progressive increased pain in the right thumb causing her to adjust her daily activities and work tasks. Leisure pursuits includes weaving pot holders and now she can only do 1 at a time. 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 She presents with intact functional ROM, but a functional decline in use due to pain with thumb use. A custom, hand based thumb spica splint was fabricated today to support the CMC joint and to facilitate improved thumb mechanics. Issued ROM HEP and began the discussion on joint protection techniques. Continued skilled OT indicated for use of modalities, manual therapy, HEP progression, and continued joint protection education and adaptive equipment instruction. Plan of Care Interventions Therapeutic Exercise,Manual Therapy,Hot Pack/Cold Pack,Ultrasound,Paraffin OT Services Indicated Yes Treatment Frequency and 1x/week for 5 visits Duration These treatments will address the objective and functional deficits as defined above. The patient will be advanced safely and appropriately in order for the patient to progress towards his/her prior level of function. Additional exercises will be introduced and as well as a comprehensive home exercise program upon discharge, if needed, ?to ensure carryover of functional gains achieved in the clinic. This treatment plan has been reviewed and agreement upon by the patient.
--- NOTE | 2024-04-16 11:59 | OPREHPOC ---
Outpatient Therapy Plan of Care This is a Multidisciplinary Plan of Care that may contain components documented by all disciplines (PT, OT, and ST.) OT Problem 1 OT Problem #1 Knowledge Deficit OT Goal 1 Goal 1. Patient to be independent with instructed materials. OT Problem 2 OT Problem #2 Pain OT Goal 1 Goal 1. Patient to report reduced pain in the right hand to 0/10 at rest. 2. Patient to report reduced pain in the right hand to 2/10 or less with ADLs. Target Visit 5 OT Problem 3 OT Problem #3 Impaired Flexibility OT Goal 1 Goal 1. Patient to be able to complete serial opposition with thumb slide to base of V without pain. Target Visit 5 OT Problem 4 OT Problem #4 Impaired Strength OT Goal 1 Goal 1. Patient to be able to complete gentle major general/ pinch strengthening with at least yellow theraputty x5 minutes without pain. 2. Patient to be able to complete CMC stabilizing HEP (rubber bands) x10 reps without pain. Target Visit 5
--- NOTE | 2024-05-05 16:10 | PCOTNOTE ---
Jarek 28 at 14:00? Note Addendum? Paraffin Dip-Immersion? Temperature 135 degrees F? 5 layers for a duration of 10 minutes to assist with pain management.? Good response to Paraffin decreased stiffness and less pain with range of motion reported. ??
--- NOTE | 2024-05-13 10:14 | OTOPDC ---
Assessment and note entered by Ashkan Pang, OTR/L, CHT OT D/C 05/13/24 OT Clinical Summary Patient did not show for her re-assessment today. Called patient who reports she didn't realize her appointment was today. She did not want to reschedule her re-assessment. At this time she has her splint and exercises. She Plans to continue these on her own. D/C OT with HEP. No formal assessment completed today.
== END 2024-05-13 10:52 | disposition home or self-care (01) ==
LOC: ANHOT 14:15
PROVIDERS: PCP Internal Medicine; Visit Provider Plastic Surgery
DX: M19.041 Primary osteoarthritis, right hand (principal)
CPT/HCPCS: 97018; 97110; 97140; 97165; L3913

== ENCOUNTER 2024-05-06 14:10 | Outpatient (CLI) | payer MEDICARE, SELFPAY ==
[2024-05-06 15:21] LABS: Anion Gap 7 mmol/L (4-12); Blood Urea Nitrogen 26 mg/dL (7-17); Calcium 9.4 mg/dL (8.4-10.2); Carbon Dioxide 32 mmol/L (22-30); Chloride 98 mmol/L (98-107); Estimated Glomerular Filt Rate 49; Glucose 81 mg/dL (65-110); Potassium 3.5 mmol/L (3.4-5.0); Sodium 137 mmol/L (137-145)
[2024-05-06 16:49] LABS: Thyroid Stimulating Hormone 0.175 uIU/mL (0.465-4.680)
[2024-05-06 17:06] LABS: Free T4 Free Thyroxine 1.32 ng/mL (0.78-2.19)
== END 2024-05-06 14:11 | disposition home or self-care (01) ==
LOC: ANHLAB 14:13
PROVIDERS: PCP Internal Medicine; Referring Provider Physician Assistant; Visit Provider Internal Medicine
DX: E03.9 Hypothyroidism, unspecified (principal); I10 Essential (primary) hypertension
CPT/HCPCS: 36415; 80048; 84439; 84443

== ENCOUNTER 2024-05-19 20:07 | Outpatient (NON) | payer MEDICARE, SELFPAY | END 2024-05-19 20:08 | disposition home or self-care (01) | LOC: ANHLAB 20:11 | PROVIDERS: PCP Internal Medicine; Visit Provider Otolaryngology | DX: J32.9 Chronic sinusitis, unspecified (principal) | CPT/HCPCS: 87070; 87075; 87081; 87181; 87205 ==

== ENCOUNTER 2024-12-10 14:45 | Outpatient (CLI) | payer MEDICARE, SELFPAY ==
--- NOTE | ~2024-12-10 | MM_ITS ---
EXAMINATION: MM screening doc BI w uriel HISTORY: Screening TECHNIQUE: Craniocaudal and mediolateral oblique 3-D tomosynthesis images were obtained and synthetic 2-D images were generated. CAD analysis was submitted and interpreted. COMPARISON: Comparison to multiple prior studies sequentially, with oldest reviewed study dated 04/23. BREAST PARENCHYMAL COMPOSITION: Not dense: There are scattered areas of fibroglandular density. FINDINGS: There is no evidence of suspicious mass, calcification, or architectural distortion to sugg est malignancy in either breast. There has been no suspicious interval change. IMPRESSION: 1. No mammographic evidence of malignancy. 2. Recommend routine screening mammography in one year. BI-RADS Category 1: Negative Reviewed, dictated and finalized at location B. M SHOVEL OILER
--- OUTSIDE RECORDS SUMMARY | 2024-12-10 14:51 | XMS_ITS | Encounter Summary ---
Author Organization [facility] Address 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 Gender Identity Not on file Sexual Orientation Not on file documented as of this encounter Plan of Treatment Not on file documented as of this encounter Procedures Procedure Name Priority Date/Time Associated Diagnosis Comments CBC WITH DIFFERENTIAL Routine 03/17/2007 8:04 AM CDT CBC WITH DIFFERENTIAL Routine 03/17/2007 8:04 AM CDT BASIC METABOLIC PANEL Routine 03/17/2007 7:00 AM CDT HEMOGLOBIN AND HEMATOCRIT Routine 03/16/2007 6:10 AM CDT documented in this encounter Results * CBC WITH DIFFERENTIAL (03/17/2007 8:04 AM CDT) NEUTROPHILS 64 45 - 70 % INTERFAC E SYSTEM LYMPHOCYTES 24 16 - 45 % INTERFAC E SYSTEM MONOCYTES 11 3 - 13 % INTERFACE SYSTEM EOSINOPHILS 0 0 - 7 % INTERFAC E SYSTEM BASOPHILS 0 0 - 2 % INTERFACE SYSTEM NEUTROPHIL ABSOLUTE 5.84 1.90 - 7.00 K/uL INTERFACE SYSTEM LYMPHOCYTE ABSOLUTE 2.19 0.70 - 4.50 K/uL INTERFACE SYSTEM MONOCYTE ABSOLUTE 0.99 0.10 - 1.30 K/uL INTERFACE SYSTEM EOSINOPHIL ABSOLUTE 0.04 0.00 - 0.70 K/uL INTERFACE SYSTEM BASOPHILS ABSOLUTE 0.02 0.00 - 0.20 K/uL INTERFACE SYSTEM 03/17/2007 8:04 AM CDT Marvel Veras MD HEMATOLOGY ORDERABLES Edit ed INTERFACE SYSTEM Refer to clinic/hospital department * (ABNORMAL) CBC WITH DIFFERENTIAL (03/17/2007 8:04 AM CDT) WBC 9.1 4.0 - 9.8 K/uL INTERFACE SYSTEM RBC 3.82(L) 3.90 - 4.90 M/uL INTERFACE SYSTEM HEMOGLOBIN 11.5(L) 11.8 - 14.8 g/dL INTERFACE SYSTEM HEMATOCRIT 35.6 35.5 - 44.0 % INTERFACE SYSTEM MCV 93.2 82.0 - 99.0 fL INTERFACE SYSTEM MCH 30.1 27.2 - 32.6 pg INTERFACE SYSTEM MCHC 32.3 31.5 - 35.5 % INTERFACE SYSTEM RDW 13.9 11.5 - 14.5 % INTERFACE SYSTEM RDW-STDEV 47.4 37.1 - 48.7 fL INTERFACE SYSTEM PLATELETS 208 140 - 350 K/uL INTERFACE SYSTEM MPV 10.3 9.3 - 12.4 fL INTERFACE SYSTEM 03/17/2007 8:04 AM CDT Marvel Veras MD HEMATOLOGY ORDERABLES Edit ed INTERFACE SYSTEM Refer to clinic/hospital department * (ABNORMAL) BASIC METABOLIC PANEL (03/17/2007 7:00 AM CDT) GLUCOSE 102(H) 65 - 99 mg/dL INTERFACE SYSTEM CREATININE 0.71 0.51 - 0.95 mg/dL INTERFACE SYSTEM CALCIUM 8.5 8.4 - 10.2 mg/dL INTERFACE SYSTEM BUN 11 6 - 20 mg/dL INTERFACE SYSTEM SODIUM 140 135 - 145 mmol/L INTERFACE SYSTEM POTASSIUM 4.0 3.5 - 4.9 mmol/L INTERFACE SYSTEM CHLORIDE 105 96 - 108 mmol/L INTERFACE SYSTEM CO2 31(H) 22 - 30 mmol/L INTERFACE SYSTEM GFR, >60 >=60 mL/min/1. 7 sq meter INTERFACE SYSTEM GFR >60 >=60 mL/min/1. 7 sq meter INTERFACE SYSTEM Comment: Estimated GFR rate interpretative information for both Americans and non- Americans is available on the [facility] Intranet at: [email or web address] Select: Lab Policies and Procedures Select: Reference Ranges - GFR 03/17/2007 7:00 AM CDT Marvel Veras MD CHEMISTRY ORDERABLES Edite d Performing Organization Address [facility] de Phone Number INTERFACE SYSTEM Refer to clinic/hospital department * HEMOGLOBIN AND HEMATOCRIT (03/16/2007 6:10 AM CDT) HEMOGLOBIN 12.8 11.8 - 14.8 g/dL INTERFACE SYSTEM HEMATOCRIT 39.8 35.5 - 44.0 % INTERFACE SYSTEM 03/16/2007 6:10 AM CDT Marvel Veras MD HEMATOLOGY ORDERABLES Edit ed Performing Organization Address [facility] de Phone Number INTERFACE SYSTEM Refer to clinic/hospital department documented in this encounter Visit Diagnoses Diagnosis Calculus of kidney- Primary documented in this encounter
--- OUTSIDE RECORDS SUMMARY | 2024-12-10 14:51 | XMS_ITS | Clinical Summary ---
Author Organization [facility] Address [address] [place] [address] Care Team Providers Care Hotel Administrative Assistant Name Role Phone Unavailable Primary Care Provider Unavailabl e Source Comments [facility],non-owned Affiliates and Associated Physician Practices is amultiple site organization consisting of ambulatory clinics and hospital sitesin [place], [place], [place] and [place]. This disclosure is being madepursuant to the Care Everywhere program and may not contain all information available regarding this patient. Last updated 18.[facility] [employer] Social History Tobacco Use Types Packs/Day Years Used Date Smoking Tobacco: Never Assessed Sex and Gender Information Value Date Recorded Sex Assigned at Not on file Gender Identity Not on file Sexual Orientation Not on file Last Filed Vital Signs Vital Sign Reading Time Taken Comments Blood Pressure 145/75 08/13/2016 9:45 AM CDT Pulse 68 08/13/2016 9:45 AM CDT Temperature 36 C (96.8 F) 04/10/2016 12:52 AM CDT Respiratory Rate 12 08/13/2016 9:45 AM CDT Oxygen Saturation 100% 04/10/2016 1:00 AM CDT Inhaled Oxygen Concentration - - Weight 122 kg (269 lb) 08/13/2016 9:45 AM CDT Height 167.6 cm (5' 6 ) 08/13/2016 9:45 AM CDT Body Mass Index 43.42 08/13/2016 9:45 AM CDT Plan of Treatment Health Maintenance Due Date Last Done Comments BONE DENSITY TESTING 1950 COLOGUARD (AGES 45-75) - COL ON CA SCREENING 1952 COLON MONITORING 1952 COLONOSCOPY - COLON CA SCREENING 1952 CT COLONOGRAPHY - COLON CA SCREENING 1950 Colorectal Cancer Screening 1952 FIT - COLON CA SCREENING 1952 FLEX SIG - COLON CA SCREENING 1952 LIPID TESTING 1952 MAMMOGRAM 1952 HEPATITIS C SCREENING 01/19/1970 DTAP/TDAP/TD VACCINES (1 - Tdap) 01/23/1971 PNEUMOCOCCAL VACCINE 50+ (1 of 1 - PCV) 01/23/2002 ZOSTER VACCINE (1 of 2) 01/23/2002 Respiratory Syncytial Virus (RSV) Vaccine Pt: or over 60 yrs (1 - Risk 60-74 years 1-dose series) 2012 COVID-19 VACCINE (1 - 2023-2 5 season) 2024 INFLUENZA VACCINE (#1) 2024 DEPRESSION SCREENING 10/27/2024 MEDICARE AWV CALENDAR YEAR 2024 HEPATITIS B VACCINE Aged Out No longe r eligible based on patient's age to complete this topic HIB VACCINE Aged Out No longer eligi ble based on patient's age to complete this topic HPV VACCINE Aged Out No longer eligi ble based on patient's age to complete this topic MENINGOCOCCAL (Group B) VACCINE Aged Out No longer eligible based on patient's age to complete this topic MENINGOCOCCAL VACCINE Aged Out No betzaida radha eligible based on patient's age to complete this topic
--- OUTSIDE RECORDS SUMMARY | 2024-12-10 14:51 | XMS_ITS | Patient Health Summary ---
Author Organization [facility] Address [address] [place] [address] Care Team Providers Care Project Management Professor Name Role Phone Unavailable Primary Care Provider Unavailabl e Note from [facility],non-owned Affiliates and Associated Physician Practices is amultiple site organization consisting of ambulatory clinics and hospital sitesin [place], [place], [place] and [place]. This disclosure is being madepursuant to the Care Everywhere program and may not contain all information available regarding this patient. Last updated 18.[facility] Social History Tobacco Use Types Packs/Day Years [...] Mass Index 43.42 08/13/2016 9:45 AM CDT Procedures * CT HEAD WO CONTRAST(Performed 04/10/2016) Results * CT HEAD WO CONTRAST (04/10/2016 1:27 AM CDT) Anatomical Region Laterality Modality Head Other Impressions 04/10/2016 6:26 AM CDT IMPRESSION: 1. No acute intracranial process. This report was electronically signed by MARK PLATA M.D. on 04/10/2016 6:26 AM . Narrative 04/10/2016 6:26 AM CDT EXAMINATION: Computed tomography (CT) of the head without contrast HISTORY: Head injury TECHNIQUE: CT of the head was performed without contrast according to standard protocol. FINDINGS: No prior study is available for comparison. No acute intra- or extra-axial fluid collections are identified. The ventricles are of normal size, shape, and morphology. The basilar cisterns are patent. No mass effect or midline shift is seen. The sheehan-white matter differentiation is normal. Other than mild paranasal sinus disease, the visualized portions of the orbits, paranasal sinuses, and mastoids appear normal. No acute fracture is identified. There is left parietal scalp swelling posteriorly near the vertex. Procedure Note Mark Plata MD - 2018 EXAMINATION: Computed tomography (CT) of the head without contrast HISTORY: Head injury TECHNIQUE: CT of the head was performed without contrast according tostandard protocol. FINDINGS: No prior study is available for comparison. No acute intra- or extra-axial fluid collections are identified. Theventricles are of normal size, shape, and morphology. The basilar cisternsare patent. No mass effect or midline shift is seen. The sheehan-white matterdifferentiation is normal. Other than mild paranasal sinus disease, the visualized portions of the orbits,paranasal sinuses, and mastoids appear normal. No acute fracture isidentified. There is left parietal scalp swelling posteriorly near thevertex. IMPRESSION IMPRESSION: 1. No acute intracranial process. This report was electronically signed by MARK PLATA M.D. on 04/10/20166:26 AM . Cindy Dunn MD CT ORDERABLES
--- OUTSIDE RECORDS SUMMARY | 2024-12-10 14:51 | XMS_ITS | Clinical Summary ---
Author Organization [facility] Address [address] [place]: Epic Prelude ADT [place] [address] Care Team Providers Care Wood Machinist Name Role Phone Unavailable Primary Care Provider Unavailabl e Social History Tobacco Use Types Packs/Day Years Used Date Smoking Tobacco: Never Assessed Comments Unknown Sex and Gender Information Value Date Recorded Sex Assigned at Not on file Legal Sex Female 3:47 AM RN DIGESTIVE Gender Identity Not on file Sexual Orientation Not on file Plan of Treatment Health Maintenance Due Date Last Done Comments DTAP/TDAP/TD VACCINES (1 - Tdap) 01/23/1971 BREAST CANCER SCREENING 1992 COLORECTAL SCREENING 01/23/1997 Colorectal Cancer Screening 01/23/1997 FIT-DNA Q 3 years 01/23/1997 FIT/FOBT Q 1 year 01/23/1997 Flex Sig/CT Colonography Q 5 years 01/23/1997 PNEUMOCOCCAL VACCINE 65+ YEARS (1 of 1 - PCV) 01/24/20 02 ZOSTER VACCINE (1 of 2) 01/23/2002 OSTEOPOROSIS SCREENING 01/23/2017 INFLUENZA VACCINE (#1) 2024 RSV VACCINE (60+ or ) (1 - 1-dose 75+ series) 01/23/2027
--- OUTSIDE RECORDS SUMMARY | 2024-12-10 14:51 | XMS_ITS | Continuity of Care Document ---
Author Organization [employer] Address [address] [place] [address] Phone Care Team Providers Care Poultry Cutter Name Role Phone Myron Senior MD Unavailable Unavailable Allergies, Adverse Reactions, Alerts Substance Reaction Status Criticality No Known Drug Allergies Other Active No I nformation Medications Medication Instructions Dosage Effective Dates (start - stop) Status Comments iron 325 mg (65 mg iron) tablet take 1 tablet by oral route every day 1 tablet - Active Protonix 40 mg tablet,delayed release TAKE ONE TABLET BY MOUTH ONCE DAILY - Active Diflucan 150 mg tablet take 1 tablet by oral route once for vaginitis - Active Vitamin B-12 1,000 mcg/mL injection solution inject 1 milliliter by intramuscular route every month - Active lisinopril 20 mg-hydrochlorothiaz prema 25 mg tablet TAKE 1/2 TABLET BY MOUTH EVERY DAY for blood pressure - Active citalopram 20 mg tablet take 1 tablet (20MG) by oral route every day for depression - Active Estrace 0.01% (0.1 mg/gram) vaginal cream insert 1 (1G) by vaginal route 3 times every week for vaginal atrophy - Active Calcium 600 + D(3) 600 mg (1,500 mg)-400 unit tablet Take daily - Active fluticasone 50 mcg/actuation nasal spray,suspension spray 1 spray by intranasal route every day in each nostril for allergic rhinitis - Active levothyroxine 100 mcg tablet TAKE ONE TABLET BY MOUTH FRIDAY THRU FRIDAY AND 2 ON Friday - Active magnesium 250 mg tablet take one tablet 5 x daily for kidneys - Active (2 in AM, 1 noon, 2 in PM) simvastatin 20 mg tablet TAKE ONE TABLET BY MOUTH AT BEDTIME - Active Vitamin D3 2,000 unit capsule Take 1 daily for vitamin D deficiency - Active NASACORT AQ 55MCG APPLICS spray 2 spray by intranasal route every day for congestion - Active for allergic rhinitis iron 325 mg (65 mg iron) tablet 1/d with c - No Longer Active Protonix 40 mg tablet,delayed release TAKE ONE TABLET BY MOUTH ONCE DAILY - No Longer Active Advance Directives Directive Yes / No Effective Date File Name No Information Encounters Encounter Description Practice Location Reason(s) For Visit Diagnoses Date Provider Providers Copied on Encounter [facility], [address], [place], [place], [address] , tel: [phone] [facility] No Information 3 5 Nadeen Sanches. [address], [address] , [place]. tel: [phone] [facility], [address], [place], [place], [address] , tel: [phone] [facility] Essential hypertensionBenign hypertension 0-201 5 Nadeen Sanches. [address], [place], [place], [address] , [place]. tel: [phone] Referring Provider: Myron Sneior, [address], [place], [address] . tel:[phone] [facility], [address], [place], [place], [address] , tel: [phone] [facility] HTN (hypertension)Hyper lipidemiaGERD (gastroesophageal reflux disease)Hypothyroid ismDepressionKidney stonesMorbid obesity 7-201 5 Nadeen Menendez. [address], [place], [place], [address] , [place]. tel: [phone] Referring Provider: [address], [place], [address] . tel:[phone] [facility] [address], [place], [place], [address] , tel: [phone] [facility] UTI (lower urinary tract infection) 5 Plisco Myron. [address], [place], [place], [address] , [place]. tel: [phone] [facility], [address], [place], [place], [address] , tel: [phone] [facility] SinusitisMorbid obesityHypothyroidi smInsomniaHTN (hypertension)Depre ssionGERD (gastroesophageal reflux disease)Hyperlipide miaPlantar fasciitis 4 Plisco Gemma. [address], [address] , . tel: [phone] Referring Provider: [address], [place], [address] . tel:[phone] [facility], [address], [place], [place], [address] , tel: [phone] [facility] Morbid obesitySinusitisALL ERGIC RHINITIS NOS 4 Plisco Gemma. [address], [address] , [place]. tel: [phone] Referring Provider: [address], [place], [address] . tel:[phone] [facility], [address], [place], [place], [address] , tel: [phone] [facility] HypothyroidismMorbi d obesityPlantar fasciitisMotion sicknessAllergic rhinitis 4 Plisco Gemma. [address] [facility], [place], [place], [address] , . tel: [phone] Referring Provider: [address], [place], [address] . tel:[phone] [facility], [address], [place], [place], [address] , [place] tel: [phone] [facility] Morbid obesityDepression 4 Nadeen Menendez. [address], [place], [place], [address] , [place]. tel: [phone] Referring Provider: Myron Senior, [address], [place], [address] . tel:[phone] [facility], [address], [place], [place], [address] , [place] tel: [phone] [facility] Hypertension, BenignMorbid obesityDepressionIn somnia 4 Mccracken Luana. [address], [place], [place], [address] , [place]. tel: [phone] Referring Provider: Myron Senior, [address], [place], [address] . tel:[phone] [facility], [address], [place], [place], [address] , [place] tel: [phone] [facility] Hypertension, BenignMorbid obesity 4 Mccracken Luana. [address], [place], [place], [address] , [place]. tel: [phone] Referring Provider: Myron Senior, [address], [place], [address] . tel:[phone] [facility], [address], [place], [place], [address] , [place] tel: [phone] [facility] Well woman exam with routine gynecological exam 4 Mccracken Luana. [address], [place], [place], [address] , [place]. tel: [phone] Referring Provider: [address], [place], [address] . tel:[phone] [facility] [address], [place], [place], [address] , tel: [phone] [facility] Hypertension, BenignObesity, Morbid Apr-1 0-201 4 Mccracken Luana. [address], [place], [place], [address] , . tel: [phone] Referring Provider: Myron Senior, [address], [place], [address] . tel:[phone] [facility] [address], [place], [place], [address] , tel: [phone] [facility] Screening for malignant neoplasm of breast Dec-0 7-201 4 Nadeen Sanches. [address], [place], [place], [address] , [place]. tel: [phone] [facility] [address], [place], [place], [address] , tel: [phone] [facility] History of fall/At Risk For FallingScreening for unspecified conditionHypertensi on, BenignObesity, MorbidHypothyroidis mHeel spurStatus post bariatric surgery Mar-0 4-201 4 Mccracken Luana. [address], [place], [place], [address] , [place]. tel: [phone] Referring Provider: Myron Senior, [address], [place], [address] . tel:[phone] [facility] [address], [place], [place], [address] , tel: [phone] [facility] DepressionBenign essential hypertensionBruisin g Nov 3-201 3 Mccracken Luana. [address], [place], [place], [address] , [place]. tel: [phone] Referring Provider: [address], [place], [address] . tel:[phone] [facility] [address], [place], [place], [address] , tel: [phone] [facility] Benign essential hypertensionObesity , unspecifiedEsophage al refluxSoft tissue injury of lower legHypothyroidDepre ssionNEED FOR PROPHYLACTIC VACCINATION WITH COMBINED DIPHTHERIA-TETANUS- PERTUSSIS (DTP) (DTAP) VACCINE 3 Nawaf Craft. [address], [place], [address] , [place]. tel: [phone] Referring Provider: Myron Senior, [address], [place], [address] . tel:[phone] [facility], [address], [place], [place], [address] , tel: [phone] [facility] Benign essential hypertensionMixed hyperlipidemiaUnspe cified acquired hypothyroidismDepre ssive disorder, not elsewhere classifiedBMI 40.0-44.9, adult 3 Plfortino Sanches. [address], [place], [address] , [place]. tel: [phone] Referring Provider: Myron Senior, [address], [place], [address] . tel:[phone] [facility], [address], [place], [place], [address] , [place] tel: [phone] [facility] Depressive disorder, not elsewhere classifiedBenign essential hypertensionMixed hyperlipidemiaUnspe cified acquired hypothyroidismHisto ry of sciaticaMorbid obesityAbsence of tooth, acquired 3 Plisco Myron. [address], [place], [address] , [place]. tel: [phone] Referring Provider: Myron Senior, [address], [place], [address] . tel:[phone] [facility], [address], [place], [place], [address] , tel: [phone] [facility] Benign essential hypertensionSciatic a of left sideDecreased libidoRashDepressiv e disorder, not elsewhere classified 2 Plfortino Sanches. [address], [place], [place], [address] , . tel: [phone] Referring Provider: Myron Senior, [address], [place], [address] . tel:[phone] [facility], [address], [place], [place], [address] , tel: [phone] [facility] Pre-op examRefluxPlantar fasciitisLeg crampsBenign essential hypertensionDepress joslyn disorder, not elsewhere classifiedUnspecifi ed acquired hypothyroidismPre-o perative examination, unspecifiedNeck pain Apr-3 0-201 2 Nadeen Menendez. [address] [facility] [address], [place], [place], [address] , [place]. tel: [phone] Referring Provider: [address], [place], [address] . tel:[phone] [facility], [address], [place], [place], [address] , [place] tel: [phone] [facility] Benign essential hypertensionDepress joslyn disorder, not elsewhere classifiedBackache, unspecifiedOther and unspecified hyperlipidemiaPain in limb 1 Mccracken Luana. [address], [place], [place], [address] , [place]. tel: [phone] Referring Provider: Myron Senior, [address], [place], [address] . tel:[phone] [facility], [address], [place], [place], [address] , [place] tel: [phone] [facility] Benign essential hypertensionObesity , unspecifiedOther and unspecified hyperlipidemiaDepre ssive disorder, not elsewhere classified 1 Mccracken Luana. [address], [place], [place], [address] , [place]. tel: [phone] Referring Provider: Myron Senior, [address], [place], [address] . tel:[phone] [facility], [address], [place], [place], [address] , [place] tel: [phone] [facility] GENERALIZED ANXIETY DISDEPRESSIVE DISORDER NECBENIGN HYPERTENSION 1 Plisco Sanches. [address], [facility] [place] [address] , [place]. tel: [phone] [facility] [address], [place], [place], [address] , [place] tel: [phone] [facility] HYPERLIPIDEMIA NEC/NOSHYPOTHYROIDI SM NOS 8201 1 Plisco Sanches. [address], [place], [address] , [place]. tel: [phone] [facility] [address], [place], [place], [address] , tel: [phone] [facility] LONG-TERM USE MEDS NEC 4-201 0 Plisco Sanches. [address], [place], [address] , [place]. tel: [phone] [facility], [address], [place], [address] , [place] tel: [phone] [facility] OBESITY NOS 0-201 0 Plisco Sanches. [address], [facility] [place], [address] , [place]. tel: [phone] [facility], [address], [place], [place], [address] , [place] tel: [phone] [facility] No Information 7-200 9 Plisco Gemma. [address], [place], [place], [address] , [place]. tel: [phone] [facility], [address], [place], [place], [address] , [place] tel: [phone] [facility] Prediabetes Jarek-2 0-200 5 Plisco Sanches. [address], [place], [address] , [place]. tel: [phone] Family History Family Member Type Diagnosis Age At Onset No Information Immunizations Vaccine Date Status Comments Tdap (Boostrix r) administered Note: [id number] ; Source: New Immunization Record Payers Payer name Insurance type Covered libertarian ID Ericastewart dignashalini(s) [employer] [id number] Social History Type Description Quantity Date Captured Comments Alcohol Use Details Unknown Caffeine Use Details Unknown Tobacco Use Status No Information Smoking Status No Information Sex Female Chief Complaint And Reason For Visit No Information Reason For Referral Reason For Referral No Information History Of Present Illness Encounter Date Complaint History Of Prese nt Illness No Information Functional Status Date Functional Assessmen t No Information Instructions Date Instruction Additional Infor mation No Information Assessments Type Assessment Date No Information Patient Care Teams Name Effective Dates (start - stop) Status Members No Information
--- OUTSIDE RECORDS SUMMARY | 2024-12-10 14:51 | XMS_ITS | Referral Summary ---
Author Organization [facility] Address [address] [place] [address] Care Team Providers Care Shared Services Manager Name Role Phone Unavailable Primary Care Provider Unavailabl e Source Comments [facility],non-owned Affiliates and Associated Physician Practices is amultiple site organization consisting of ambulatory clinics and hospital sitesin [place], [place], [place] and [place]. This disclosure is being madepursuant to the Care Everywhere program and may not contain all information available regarding this patient. Last updated 18.[facility] Social History Tobacco Use Types Packs/Day Years [...] 08/13/2016 9:45 AM CDT Plan of Treatment Not on file
== END 2024-12-10 14:46 | disposition home or self-care (01) ==
LOC: ANHIMG 14:49
PROVIDERS: PCP Internal Medicine; Visit Provider Internal Medicine
DX: Z12.31 Encounter for screening mammogram for malignant neoplasm of breast (principal)
CPT/HCPCS: 77063; 77067

== ENCOUNTER 2025-03-03 09:07 | Outpatient (CLI) | payer MEDICARE, SELFPAY ==
--- OUTSIDE RECORDS SUMMARY | 2025-03-03 09:23 | XMS_ITS | Clinical Summary ---
Author Organization [facility] Address [address] [place] [address] Care Team Providers Care Dramatic Critic Name Role Phone Da Overton MD Primary Care Provider [phone] Allergies No known active allergies Medications simvastatin (ZOCOR) 20 mg tablet Take 1 tablet (20 mg total) by mouth nightly [address] (PROTONIX) 40 mg EC tablet Take 1 tablet (40 mg total) by mouth daily 3 Active hydroCHLOROthia zide (HYDRODIURIL) 12.5 mg tablet Take 1 tablet (12.5 mg total) by mouth daily 3 Active levothyroxine (SYNTHROID) 112 mcg tablet Take 1 tablet (112 mcg total) by mouth distribution systems serviceperson before breakfast Active amLODIPine (NORVASC) 10 mg tablet Take 1 tablet (10 mg total) by mouth daily 3 Active allopurinoL (ZYLOPRIM) 100 mg tablet Take 1 tablet (100 mg total) by mouth daily 3 Active montelukast (SINGULAIR) 10 mg tablet Take 1 tablet (10 mg total) by mouth nightly 3 Active citalopram (CeleXA) 20 mg tablet Take 1 tablet (20 mg total) by mouth daily 3 Active terbinafine (LamiSIL) 250 mg tablet Take 1 tablet (250 mg total) by mouth daily Active ferrous sulfate 325 mg (65 mg of elemental iron) tabletIndicatio ns:Iron Deficiency Anemia Take 1 tablet (325 mg total) by mouth daily with breakfast Active cholecalciferol 400 unit capsule Active furosemide (LASIX) 40 mg tablet Take 1 tablet (40 mg total) by mouth 2 (two) times a day Active semaglutide (WEGOVY) 1.7 mg/0.75 mL auto-injector Inject 0.75 mL (1.7 mg total) under the skin Active ALPRAZolam (XANAX) 0.5 mg tablet Take 1 tablet before leaving your house. Take a 2nd tablet on arrival to office. 2 tablet 4 Active Additional Information Patient not taking.Reported on 12/15/2023 ammonium lactate (LAC-HYDRIN) 12 % lotion 3 Active buPROPion XL (WELLBUTRIN XL) 300 mg 24 hr tablet 4 Active potassium chloride ER 10 mEq CR capsule Take by mouth daily 4 Active ALPRAZolam (XANAX) 0.5 mg tablet Take 1 tablet before leaving your house. Take a 2nd tablet on arrival to office. 2 tablet 4 Active Active Problems Problem Noted Date Diagnosed Date Varicose veins of leg with pain, left 12/26/2023 Varicose veins of leg with pain, right 4 Varicose veins of both lower extremities with pa in 08/21/2023 Assessment & Plan (12/15/2023 1:22 PM KARATE TEACHER): Status post EVLT to the right lower extremity along with 25 stab phlebectomies on 11/14/2023. Patient is recovering well. No signs of infection or inflammation. Patient is scheduled to have her left leg done in December. Plan: Continue wearing compression stockings for support and follow-up as scheduled in December. Assessment & Plan (09/23/2023 11:46 AM KARATE TEACHER): Impression: Patient complains of pain and swelling to bilateral lower extremities with prolonged standing despite compression therapy. Venous reflux performed reveals significant reflux to bilateral great saphenous femoral junction. Plan: Recommend staged EVLT with stab phlebectomies starting with the right lower extremity as the reflux is worse noted on venous reflux study. Risks, benefits, and alternatives to saphenous ablation and stab phlebectomies were discussed with the patient. Risks including bleeding, infection, deep vein thrombosis, pulmonary embolism, burn injury to the skin and/or nerve. They wished to proceed. -recommend patient to continue utilizing compression therapy until scheduled procedure. Assessment & Plan (08/21/2023 2:01 PM CDT): Bilateral lower extremity symptomatic varicosities despite years of compression therapy. We discussed the importance of continuing her compression therapy. Bilateral lower extremity reflux solution design and analysis manager ordered for further evaluation, pending this she likely would benefit from a GSV ablation and stab phlebectomies bilaterally. Primary hypertension 08/21/2023 Assessment & Plan (09/23/2023 11:46 AM KARATE TEACHER): Impression: Stable and chronic. Plan: Continue amlodipine Assessment & Plan (08/21/2023 2:01 PM CDT): Stable continue amlodipine 10 mg. Mixed hyperlipidemia 08/21/2023 Assessment & Plan (09/23/2023 11:46 AM KARATE TEACHER): Impression: Chronic stable. Plan: Continue simvastatin Assessment & Plan (08/21/2023 2:01 PM CDT): Stable continue simvastatin 20 mg. Immunizations Immunization Administration Dates Next Due Influenza, Quad, Adjuvantate d, Intramuscular 07/26/2023,08/17/2022,07/31/2021 Influenza, Unspecified 08/10/2015 Pneumococcal Conjugate Pcv20 07/26/2023 Tdap 07/11/2022 Social History Tobacco Use Types Packs/Day Years Used Date Smoking Tobacco: Never Smokeless Tobacco: Never Tobacco Cessation:Counseling Given: Not Answered Personal Safety Answer Date Recorded Getting School Help Needed Not on file 10/16 Comments Unknown Sex and Gender Information Value Date Recorded Sex Assigned at Not on file Legal Sex Female 6:37 AM KARATE TEACHER Gender Identity Not on file Sexual Orientation Not on file Obstetrics History Last Filed Vital Signs Vital Sign Reading Time Taken Comments Blood Pressure 131/74 12/26/2023 9:11 AM KARATE TEACHER Pulse 65 12/26/2023 9:11 AM KARATE TEACHER Temperature - - Respiratory Rate - - Oxygen Saturation - - Inhaled Oxygen Concentration - - Weight 91.6 kg (202 lb) 12/15/2023 12:58 PM KARATE TEACHER Height 165.1 cm (5' 5 ) 12/15/2023 12:58 PM KARATE TEACHER Body Mass Index 33.61 12/15/2023 12:58 PM KARATE TEACHER Plan of Treatment Health Maintenance Due Date Last Done Comments Breast Cancer Screening-Mammogram 1950 Colon Cancer Screening-Colonoscopy 1950 Depression Screening 1950 Fall Risk Assessment 1950 Hepatitis C Screening 1950 Osteoporosis Screening-Bone Density Scan 1950 Hepatitis B Screening 01/23/1970 Zoster Vaccine (1 of 2) 01/23/2002 Well Visit 65+ 01/23/2017 Covid-19 Vaccine (2023-2 5 season) 2024 07/26/2023, 08/17/2022, 07/31/2021, Additional history exists Influenza Vaccine (Season Ended) 2025 07/26/2023, 08/17/2022, 07/31/2021, Additional history exists DTaP/Tdap/Td Vaccine (2 - Td or Tdap) 07/11/2032 07/11/2022 Pneumococcal vaccine 65+ Completed 07/26/[address] [place] [place] [address] [employer] CHOICE MEDICARE PPO [employer] MEDICARE PPO Care Teams Dramatic Critic Relationship Specialty Start Date End Date Da Overton MD [address] [facility] [address] [place] [address] PCP - General Internal Medicine 07/08/23
--- OUTSIDE RECORDS SUMMARY | 2025-03-03 09:23 | XMS_ITS | Clinical Summary ---
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
--- OUTSIDE RECORDS SUMMARY | 2025-03-03 09:23 | XMS_ITS | Clinical Summary ---
Author Organization [facility] Address [address] [place] [address] Care Team Providers Care Appellate Court Clerk Name Role Phone Unavailable Primary Care Provider Unavailabl e Source Comments [facility],non-owned Affiliates and Associated Physician Practices is amultiple site organization consisting of ambulatory clinics and hospital sitesin [place], [place], [place] and [place]. This disclosure is being madepursuant to the Care Everywhere program and may not contain all information available regarding this patient. Last updated 18.[facility] [employer] Social History Tobacco Use Types Packs/Day Years Used Date Smoking Tobacco: Never Assessed Comments Unknown Sex and Gender Information Value Date Recorded Sex Assigned at Not on file Legal Sex Female 6:04 AM COAL SAMPLER Gender Identity Not on file Sexual Orientation [...] 60-74 years 1-dose series) 2012 COVID-19 VACCINE (2023-2 5 season) 2024 DEPRESSION SCREENING 10/27/2024 MEDICARE AWV CALENDAR YEAR 2024 INFLUENZA VACCINE (Season Ended) 2025 HEPATITIS B VACCINE Aged Out No longe r eligible based on patient's age to complete this topic HIB VACCINE Aged Out No longer eligi ble based on patient's age to complete this topic HPV VACCINE Aged Out No longer eligi ble based on patient's age to complete this topic MENINGOCOCCAL (Group B) VACC INE SHARED DECISION-MAKING Aged Out No longer eligibl e based on patient's age to complete this topic MENINGOCOCCAL GROUPS A/C/Y/W VACCINE Aged Out No longer eligible b ased on patient's age to complete this topic [place] [address] [facility] MEDICARE ADV HMO & PPO
--- OUTSIDE RECORDS SUMMARY | 2025-03-03 09:23 | XMS_ITS | Encounter Summary ---
Author Organization [facility] Address 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 Gender Identity Not on file Sexual Orientation [...] and non- Americans is available on the [facility] Intranet at: [email or web address] Select: Lab Policies and Procedures Select: Reference Ranges - GFR 03/17/2007 7:00 AM CDT Marvel Veras MD CHEMISTRY ORDERABLES Edite d Performing Organization Address [facility] de Phone Number INTERFACE SYSTEM Refer to clinic/hospital department * HEMOGLOBIN AND HEMATOCRIT (03/16/2007 6:10 AM CDT) HEMOGLOBIN 12.8 11.8 - 14.8 g/dL INTERFACE SYSTEM HEMATOCRIT 39.8 35.5 - 44.0 % INTERFACE SYSTEM 03/16/2007 6:10 AM CDT Marvel Veras MD HEMATOLOGY ORDERABLES Edit ed Performing Organization Address [facility] de Phone Number INTERFACE SYSTEM Refer to clinic/hospital department documented in this encounter Visit Diagnoses Diagnosis Calculus of kidney- Primary documented in this encounter
--- OUTSIDE RECORDS SUMMARY | 2025-03-03 09:23 | XMS_ITS | Referral Summary ---
Author Organization [facility] Address [address] [place] [address] Care Team Providers Care Medical Education Manager Name Role Phone Da Overton MD Primary Care Provider [phone] Allergies No known active allergies Medications simvastatin [...] 1 tablet (112 mcg total) by mouth clerk general before breakfast Active amLODIPine (NORVASC) 10 mg [...] 08/21/2023 Assessment & Plan (12/15/2023 1:22 PM CONSUMER LOAN UNDERWRITER): Status post EVLT to the right lower extremity along with 25 stab phlebectomies on 11/14/2023. Patient is recovering well. No signs of infection or inflammation. Patient is scheduled to have her left leg done in December. Plan: Continue wearing compression stockings for support and follow-up as scheduled in December. Assessment & Plan (09/23/2023 11:46 AM CONSUMER LOAN UNDERWRITER): Impression: Patient complains of pain and swelling [...] her compression therapy. Bilateral lower extremity reflux fire inspector ordered for further evaluation, pending this she likely would benefit from a GSV ablation and stab phlebectomies bilaterally. Primary hypertension 08/21/2023 Assessment & Plan (09/23/2023 11:46 AM CONSUMER LOAN UNDERWRITER): Impression: Stable and chronic. Plan: Continue amlodipine Assessment & Plan (08/21/2023 2:01 PM CDT): Stable continue amlodipine 10 mg. Mixed hyperlipidemia 08/21/2023 Assessment & Plan (09/23/2023 11:46 AM CONSUMER LOAN UNDERWRITER): Impression: Chronic stable. Plan: Continue simvastatin Assessment [...] on file Legal Sex Female 6:37 AM CONSUMER LOAN UNDERWRITER Gender Identity Not on file Sexual Orientation Not on file Last Filed Vital Signs Vital Sign Reading Time Taken Comments Blood Pressure 131/74 12/26/2023 9:11 AM CONSUMER LOAN UNDERWRITER Pulse 65 12/26/2023 9:11 AM CONSUMER LOAN UNDERWRITER Temperature - - Respiratory Rate - - Oxygen Saturation - - Inhaled Oxygen Concentration - - Weight 91.6 kg (202 lb) 12/15/2023 12:58 PM CONSUMER LOAN UNDERWRITER Height 165.1 cm (5' 5 ) 12/15/2023 12:58 PM CONSUMER LOAN UNDERWRITER Body Mass Index 33.61 12/15/2023 12:58 PM CONSUMER LOAN UNDERWRITER Plan of Treatment Not on file Insurance [employer] MEDICARE PPO [employer] MEDICARE PPO Care Teams Medical Education Manager Relationship Specialty Start Date End Date Da Overton MD [address] [facility] [address] [place], [place] [phone] PCP - General Internal Medicine 07/08/23
[2025-03-03 09:31] LABS: Basophils Absolute Auto 0.1 K/mm3 (0.0-0.1); Basophils Percent Auto 0.6 % (0.2-1.2); Eosinophils Absolute Auto 0.2 K/mm3 (0-0.3); Eosinophils Percent Auto 1.6 % (0-4.4); Hematocrit 41.3 % (37.0-47.0); Hemoglobin 13.6 g/dL (12.0-15.0); Immature Granulocyte Absolute 0.06 K/mm3 (0.00-0.031); Immature Granulocyte Percent A 0.6 % (0-0.5); Lymphocytes Absolute Auto 1.75 K/mm3 (0.9-3.2); Lymphocytes Percent Auto 16.8 % (18.3-44.2); Mean Corpuscular HGB Conc 32.9 g/dl (32-36); Mean Corpuscular Hemoglobin 33.7 pg (26-34); Mean Corpuscular Volume 102.2 fl (80-100); Mean Platelet Volume 9.1 fl (7.4-10.4); Monocytes Absolute Auto 0.9 K/mm3 (0.1-0.6); Monocytes Percent Auto 8.6 % (2.6-8.5); Neutrophils Absolute Auto 7.5 K/mm3 (1.3-6.7); Neutrophils Percent Auto 71.8 % (45.5-73.1); Platelet Count Result 291 k/mm3 (150-375); Red Blood Count 4.04 M/mm3 (4.2-5.4); Red Cell Distribution Width 13.2 % (11.5-14.5); White Blood Count 10.4 K/mm3 (4.5-10.0)
[2025-03-03 09:43] LABS: Alanine Aminotransferase 28 U/L (6-35); Albumin Level 3.9 g/dL (3.5-5.1); Alkaline Phosphatase 58 U/L (38-126); Anion Gap 6 mmol/L (4-12); Aspartate Amino Transferase 34 U/L (14-36); Bilirubin,Total 0.6 mg/dL (0.2-1.3); Blood Urea Nitrogen 20 mg/dL (7-17); Carbon Dioxide 31 mmol/L (22-30); Chloride 103 mmol/L (98-107); Cholesterol 154 mg/dL (0-200); Estimated Glomerular Filt Rate 57; Glucose 98 mg/dL (65-110); HDL Direct 65 mg/dL; Potassium 3.5 mmol/L (3.4-5.0); Sodium 140 mmol/L (137-145); Triglycerides 63 mg/dL (<150)
[2025-03-03 09:54] LABS: LDL Cholesterol Direct 61 mg/dL
== END 2025-03-03 09:08 | disposition home or self-care (01) ==
PROVIDERS: PCP Internal Medicine; Visit Provider Internal Medicine
DX: E03.9 Hypothyroidism, unspecified (principal); E78.5 Hyperlipidemia, unspecified; Z98.84 Bariatric surgery status; R73.9 Hyperglycemia, unspecified; B35.1 Tinea unguium; I10 Essential (primary) hypertension
CPT/HCPCS: 36415; 80053; 80061; 82607; 84443; 85025